=== PATIENT | male | born 1980 | race Caucasian/White ===

== ENCOUNTER 2023-06-09 17:20 | Inpatient (IN) | payer MEDICAID, SELFPAY ==
[2023-06-09 17:22] VITALS: BP 121/90; PULSE 105; RESP 16; TEMP 36.6; O2SAT 95
[2023-06-09 17:45] VITALS: BMI 37.0
--- NOTE | 2023-06-09 17:54 | EKG12_ITS ---
Test Reason : CP Blood Pressure : / mmHG Vent. Rate : 092 BPM Atrial Rate : 092 BPM P-R Int : 132 ms QRS Dur : 088 ms QT Int : 338 ms P-R-T Axes : 058 064 032 degrees QTc Int : 417 ms Normal sinus rhythm with sinus arrhythmia Normal ECG Confirmed by SONAL MARTÍNEZ, TODD ([id number]), manager editorial CHRISTINE AMIN ([id number]) on 06/16/2023 8:17:02 AM Referred By: FREYA Confirmed By:TODD PRUITT MD
--- NOTE | 2023-06-09 17:56 | EDS_ITS ---
HPI <LORNA Anderson - Last Filed: 06/09/23 19:49> History of Present Illness Chief Complaint: Chest Pain Narrative Narrative: Patient is a 42-year-old male with history of pericarditis March 2022 who presents to the emergency department for left-sided chest pain. Patient stated started all of a sudden while he was just sitting there today. Patient states that since this pericarditis which they state was from the COVID-19 virus, he does have some history of panic attacks. Patient states whenever he does feel something in his chest he gets nervous and makes the pain worse. He states that he now has a 6-year-old that is spending time with him and he would like to be checked out. He states it does not feel like his pericarditis. He denies any shortness of breath. He is actually asymptomatic once coming to a room. He is here for evaluation [facility] <LORNA Anderson - Last Filed: 06/09/23 19:49> [facility] Medical History Pericarditis Home Medications carvedilol 3.125 mg tablet 3.125 mg PO Q12H 06/09/23 [History Last Taken Unknown] pantoprazole 40 mg tablet,delayed release 40 mg PO Q12H 06/09/23 [History Last Taken Unknown] Allergy/AdvReac Type Severity Reaction Status Date / Time No Known Allergies Allergy Verified 06/09/23 17:21 Surgical History (Updated 06/09/23 @ 21:00 by Sanjay Anaya) History of cholecystectomy Social History Smoking Status: Never smoker ROS <LORNA Anderson - Last Filed: 06/09/23 19:49> ROS ED ROS Narrative Constitutional: Negative for fever, chills, weight loss, weakness Eyes: Negative for vision loss, vision change, double vision ENT: Negative for any sore throat, ear pain, congestion Cardiovascular: Negative for any palpitations. Positive left-sided chest pain, chest tightness Respiratory: Negative for any cough, sputum production, hemoptysis, dyspnea, dyspnea on exertion, orthopnea Gastrointestinal: Negative for any abdominal pain, nausea, vomiting, diarrhea, constipation, blood in stool, blood in vomit : Negative for any urinary frequency, dysuria, retention, blood in urine Muscle skeletal: Negative for any myalgias, arthralgias, neck pain, back pain Neurological: Negative for any headache, syncope, paresthesias, dizziness Skin: Negative for any rashes, lumps, itching, abrasions, lacerations Psychiatric: Negative for any depression, anxiety, stress, suicidal ideation, homicidal ideation Hematologic: Negative for any easy bruising, excessive bruising, easy bleeding Allergies: Negative for any eczema, hives, rash EXAM <LORNA Anderson - Last Filed: 06/09/23 19:49> Physical Exam Narrative Exam Narrative: Vital signs reviewed. HEET: Head normocephalic atraumatic, TMs clear bilaterally. Posterior pharynx is clear, moist mucous membranes. Nares clear bilaterally. Neck: Supple with no lymphadenopathy or tenderness. No signs of meningismus. Cardiac: Regular rate and rhythm no murmurs gallops or rubs, equal peripheral pulses bilaterally. Respiratory: Lungs clear to auscultation bilaterally. No chest tenderness. Abdomen: Soft, nontender, nondistended. No abdominal bruit or pulsatile masses. No hepatosplenomegaly Extremities: No peripheral edema, no signs of gross trauma or deformity. Active full range of motion of all extremities. Neuro: Cranial nerves II through XII intact, no focal neurological deficits. Skin: Clean dry and intact with no rash, purpura, petechiae, vesicles or pustules. Backs/flank: No CVA tenderness, no midline spinal tenderness, no deformity. Psych: Normal mood and affect. No SI, HI or acute psychosis. Const Vital Signs: 06/09/23 17:22 06/09/23 17:45 06/09/23 18:20 Temperature 97.8 F Temperature Source Temporal Pulse Rate 105 H 75 Respiratory Rate 16 20 H Respiratory Effort Normal Non-Labored Blood Pressure 121/90 H 130/74 H Blood Pressure Mean 100 92 Pulse Ox 95 94 Oxygen Delivery Method Room Air Room Air 06/09/23 19:00 06/09/23 20:03 06/09/23 20:00 Temperature Temperature Source Pulse Rate 78 83 81 Respiratory Rate 16 17 Respiratory Effort Blood Pressure 131/87 H Blood Pressure Mean 101 Pulse Ox 95 93 Oxygen Delivery Method Room Air Positive well nourished and well developed General Appearance ED: well developed <Marciano Hernandez MD - Last Filed: 06/09/23 23:01> Physical Exam Const Vital Signs: 06/09/23 17:22 06/09/23 17:45 06/09/23 18:20 Temperature 97.8 F Temperature Source Temporal Pulse Rate 105 H 75 Respiratory Rate 16 20 H Respiratory Effort Normal Non-Labored Blood Pressure 121/90 H 130/74 H Blood Pressure Mean 100 92 Pulse Ox 95 94 Oxygen Delivery Method Room Air Room Air 06/09/23 19:00 06/09/23 20:03 06/09/23 20:00 Temperature Temperature Source Pulse Rate 78 83 81 Respiratory Rate 16 17 Respiratory Effort Blood Pressure 131/87 H Blood Pressure Mean 101 Pulse Ox 95 93 Oxygen Delivery Method Room Air MDM <LORNA Anderson - Last Filed: 06/09/23 19:49> MDM Lab Data Labs: Laboratory Results - last 24 hr 06/09/23 06/09/23 17:35 19:45 WBC 6.6 RBC 5.57 Hgb 16.8 H Hct 48.2 MCV 86.5 MCH 30.2 MCHC 34.9 RDW Std Deviation 38.9 RDW Coeff of Adam 12.2 Plt Count 401 MPV 10.3 Immature Gran % (Auto) 0.600 Neut % (Auto) 64.3 Lymph % (Auto) 25.4 [place] % (Auto) 6.5 Eos % (Auto) 1.4 Baso % (Auto) 1.8 H Absolute Neuts (auto) 4.3 Absolute Lymphs (auto) 1.68 Nucleated RBC % 0 ESR 17 PT Cancelled INR Cancelled APTT Cancelled Sodium 138 Potassium 3.7 Chloride 107 Carbon Dioxide 27.0 Anion Gap 4 L BUN 9 Creatinine 1.10 Estim Creat Clear Calc 100.67 Est GFR (MDRD) Af Amer 94 Est GFR (MDRD) Non-Af 77 BUN/Creatinine Ratio 8.2 L Glucose 152 H Calcium 9.7 Troponin I High Sens 316 H* Cancelled Radiography Diagnostic Testing: Clinical Impression(s) from Imaging Studies Chest X-Ray 06/09/23 18:05 IMPRESSION: No acute radiographic abnormalities. Electronically Signed: Quirino Jones MD at 19:42 EST , EKG EKG shows normal sinus rhythm with sinus arrhythmia: Attestation: I personally reviewed and interpreted this EKG as follows: Interpretation: Sinus Rhythm Comments: Sinus rhythm with sinus arrhythmia, rate 92 bpm, NE 132 ms, QRS duration 88 ms, no acute ST elevation, no acute infarct noted. Treatment and Re-Evaluation :: Patient appears generally well, patient appears nontoxic, vital signs are stable. Present to the emergency department with complaints of left-sided chest pain, differential diagnose includes repeat pericarditis, anxiety, chest wall p ain. EKG was unremarkable, patient will receive a full cardiac workup. Patient is asymptomatic on my examination. Patient laboratory values show a normal white blood cell CBC, patient's chemistries show a glucose of 102 with an elevated troponin of 316. Secondary to this finding, history of chest pain, patient was given aspirin as well as heparin IV drip and bolus. Patient will need to be admitted to hospital for NSTEMI. Patient was made aware. Patient remained stable. Chest x-ray was unremarkable any acute process. This was interpreted by the ER physician. Spoke with hospitalist, they are agreement and will admit the patient. <Marciano Hernandez MD - Last Filed: 06/09/23 23:01> [facility] MDM Narrative Medical decision making narrative: Dr. Hernandez: I have personally performed a face to face assessment of the patient and have reviewed the GIA Note. I performed a substantive portion of the visit including all aspects of the following. My yates findings include: History is chest pain, history of pericarditis approximately 1 year ago. According to patient, this felt different . Exam is afebrile. Vital signs noted. Regular rate and rhythm. Lungs clear to auscultation bilaterally. Abdomen soft and nontender with normal active bowel sounds. Neurological examination nonfocal and nonlateralizing. Medical Decision Making: Concern is for ACS versus pericarditis, and I have low suspicion for pulmonary embolism. Check EKG. EKG interpreted by myself indepen dently shows no STEMI. Chest x-ray 1 view interpreted by myself shows no acute process. Check labs. Elevated troponin without evidence of acute kidney injury. Concern is for non-STEMI. Patient was given aspirin and started on a heparin drip with bolus. Patient discussed with hospitalist for admission to the PCU. Patient is in stable condition. Other additions or changes: [None] History & Record Review Discussion w/independent historian: Patient Additional record(s) reviewed:: No prior records Lab Data Attestation: I reviewed the patient's lab results. Labs: Laboratory Results - last 24 hr 06/09/23 06/09/23 17:35 19:45 WBC 6.6 RBC 5.57 Hgb 16.8 H Hct 48.2 MCV 86.5 MCH 30.2 MCHC 34.9 RDW Std Deviation 38.9 RDW Coeff of Adam 12.2 Plt Count 401 MPV 10.3 Immature Gran % (Auto) 0.600 Neut % (Auto) 64.3 Lymph % (Auto) 25.4 [place] % (Auto) 6.5 Eos % (Auto) 1.4 Baso % (Auto) 1.8 H Absolute Neuts (auto) 4.3 Absolute Lymphs (auto) 1.68 Nucleated RBC % 0 ESR 17 PT Cancelled INR Cancelled APTT Cancelled Sodium 138 Potassium 3.7 Chloride 107 Carbon Dioxide 27.0 Anion Gap 4 L BUN 9 Creatinine 1.10 Estim Creat Clear Calc 100.67 Est GFR (MDRD) Af Amer 94 Est GFR (MDRD) Non-Af 77 BUN/Creatinine Ratio 8.2 L Glucose 152 H Calcium 9.7 Troponin I High Sens 316 H* Cancelled Radiography Diagnostic Testing: Clinical Impression(s) from Imaging Studies Chest X-Ray 06/09/23 18:05 IMPRESSION: No acute radiographic abnormalities. Electronically Signed: Quirino Jones MD at 19:42 EST , Management Discussion w/another healthcare provider: Hospitalist Discharge Plan Dx/Rx/DC Orders Clinical Impression: Non-ST elevation (NSTEMI) myocardial infarction, Chest pain Disposition Disposition: Acute Care Hospital [facility] Discharge Date/Time: 06/09/23 20:38
[2023-06-09] MEDS: 0.9% Normal Saline (1000mL) 1,000 ML 1000 ML IV (17:57)
--- NOTE | 2023-06-09 17:59 | NURSING ---
NO OLD EKGS
--- NOTE | 2023-06-09 18:05 | RAD_ITS ---
INDICATION: chest pain EXAMINATION/TECHNIQUE: X-RAY - XR Chest 2 Views COMPARISON: None. FINDINGS: The lungs are clear. The cardiomediastinal silhouette is unremarkable. No pleural effusion or pneumothorax. No acute osseous abnormalities. RAD/Chest PA and Lateral IMPRESSION: No acute radiographic abnormalities. Electronically Signed: Quirino Jones MD at 19:42 EST ,
[2023-06-09 18:20] VITALS: BP 130/74; PULSE 75; RESP 20; O2SAT 94
[2023-06-09 18:50] LABS: Troponin-I HS (w/2H Reflex) 316 pg/mL (3.0-78.0)
[2023-06-09 18:51] LABS: Anion Gap 4 (5-15); BUN 9 mg/dL (7-18); BUN/Creat Ratio 8.2 RATIO (10-20); Calcium,Total 9.7 mg/dL (8.5-10.1); Chloride 107 mmol/L (98-107); EST Glomerular Filtration Rate 77 mL/min (>60); Est Glom Filt Rate - Afr Amer 94 mL/min (>60); Estimated Creatinine Clearance 100.67 ml/min; Glucose 152 mg/dL (74-106); Potassium 3.7 mmol/L (3.5-5.1); Sodium Level 138 mmol/L (136-145)
[2023-06-09 18:52] LABS: Absolute Lymphocyte Count 1.68 X10^3/uL (0.83-4.51); Absolute Neutrophil Count 4.3 X10^3/uL (2.0-7.7); Basophil# 0.12 X10^3/uL; Basophil% 1.8 % (0-1); Eosinophil# 0.09 X10^3/uL; Eosinophils% 1.4 % (0-5); Hematocrit 48.2 % (40-54); Hemoglobin 16.8 g/dL (13.0-16.5); Lymphocyte # 1.68 X10^3/ul (0.83-4.51); Lymphocyte % 25.4 % (19-41); Mean Corp Hgb Conc 34.9 g/dL (32-36); Mean Corpuscular Hgb 30.2 pg (27.0-32.0); Mean Corpuscular Volume 86.5 fL (80-94); Mean Platelet Vol. 10.3 fl (6.2-12.0); Monocyte# 0.43 X10^3/uL; Monocyte% 6.5 % (0-10); NRBC Flagged by Analyzer 0 % (0-5); Neutrophil # 4.26 X10^3/uL (2.7-7.7); Neutrophil % 64.3 % (47-70); Platelet Count 401 K/mm3 (150-450); RBC Distribution Width CV 12.2 % (11.6-14.6); RBC Distribution Width SD 38.9 fl (35.1-43.9); Red Blood Count 5.57 M/mm3 (4.6-6.2); White Blood Count 6.6 K/mm3 (4.4-11.0)
[2023-06-09 19:00] VITALS: PULSE 78; RESP 16; O2SAT 95
[2023-06-09 19:14] LABS: Erythrocyte Sedimentation Rate 17 mm/hr (0-20)
[2023-06-09] MEDS: Heparin Injection (Vial) 5,000 UNIT/ML VIAL 4000 UNIT IV (19:56)
[2023-06-09] MEDS: Aspirin 81 MG TAB.CHEW 324 MG PO (19:56)
[2023-06-09] MEDS: HEPARIN/D5w 25,000 UNITS 25,000 UNITS/250 ML IV.SOLN. 0.100000000000000006 UNITS CONT INF (19:58)
[2023-06-09 20:00] VITALS: PULSE 81
[2023-06-09 20:03] VITALS: BP 131/87; PULSE 83; RESP 17; O2SAT 93
--- NOTE | 2023-06-09 20:08 | HP.PCM.HOS_ITS ---
HPI - General General Date of Admission: 06/09/23 Date of Service: 06/09/23 Chief Complaint: Chest pain HPI Narrative JONI CARRILLO, is a 42 M who presents to the ED with concerns of retrosternal chest pain since today. The pain started while he was jogging today and subsided spontaneously after about 3 hours of rest. Last year he developed acute pericarditis that was attributed to COVID and responded to symptomatic therapy. Coronary angiogram at the time was normal. The chest pain was associated with no diaphoresis, syncope, palpitations. No history of falls in the past. Intermittent marijuana use, no smoking, occasional alcohol use. No other drug use. No family history of coronary artery disease. His hemoglobin is 16.8, WBC 6.6, platelet 401, normal creatinine, potassium 3.7, but his troponin high was 316. There are no findings of pericardial effusion on chest x-ray, chest x-ray is essentially normal. [facility] Medical History Pericarditis Home Medications carvedilol 3.125 mg tablet 3.125 mg PO Q12H 06/09/23 [History Last Taken Unknown] pantoprazole 40 mg tablet,delayed release 40 mg PO Q12H 06/09/23 [History Last Taken Unknown] Allergy/AdvReac Type Severity Reaction Status Date / Time No Known Allergies Allergy Verified 06/09/23 17:21 Surgical History (Updated 06/09/23 @ 21:00 by Sanjay Anaya) History of cholecystectomy Social History Smoking Status: Never smoker ROS Constitutional Constitutional: Denies anorexia, change in weight, chills, fatigue, fever(s), malaise, night sweats, weakness or other Eyes Eyes: Denies blurry vision, change in eye color, change in vision, discharge from eye(s), double vision, erythema, eye pain, loss of vision or other ENT HEENT: Denies abnormal hearing, dysphagia, ear pain, epistaxis, headache(s), hearing loss, nasal congestion, nasal discharge, post nasal drip, sinus pressure, sore throat or other Cardiovascular Cardiovascular: Reports chest pain; Denies claudication, dyspnea on exertion, edema, lightheadedness, orthopnea, palpitations, paroxysmal nocturnal dyspnea, rapid heart rate, syncope or other Respiratory/Chest Respiratory/Chest: Denies cough, dyspnea, excessive phlegm production, hemoptysis, productive cough, shortness of breath at rest, shortness of breath with exertion, wheezing or other Gastrointestinal Gastrointestinal: Denies abdominal pain, coffee ground emesis, constipation, diarrhea, dyspepsia, hematemesis, hematochezia, loose stools, melena, nausea, vomiting or other Genitourinary Genitourinary: Denies burning urination, difficulty urinating, dysuria, hematuria, nocturia, urinary frequency, urinary hesitancy, urinary incontinence, urinary urgency or other Vital Signs Vital Signs Vital Signs: 06/09/23 17:22 06/09/23 17:45 06/09/23 18:20 Temperature 97.8 F Temperature Source Temporal Pulse Rate 105 H 75 Respiratory Rate 16 20 H Respiratory Effort Normal Non-Labored Blood Pressure 121/90 H 130/74 H Blood Pressure Mean 100 92 Pulse Ox 95 94 Oxygen Delivery Method Room Air Room Air 06/09/23 19:00 06/09/23 20:03 06/09/23 20:00 Temperature Temperature Source Pulse Rate 78 83 81 Respiratory Rate 16 17 Respiratory Effort Blood Pressure 131/87 H Blood Pressure Mean 101 Pulse Ox 95 93 Oxygen Delivery Method Room Air Weight Weight: 288 lb 12.889 oz Body Mass Index (BMI) 37.0 Physical Exam Const alert, oriented x3 and no apparent distress HEENT normocephalic Eyes PERRL Neck no lymphadenopathy Resp normal respiratory effort Cardio regular rate, regular rhythm, S1 normal heart sound, S2 normal heart sound and no JVD GI normal to inspection, nondistended, normoactive bowel sounds Neuro oriented x3 Results Medical Records Data Attestation: I reviewed the patient's medical records Lab / Micro Data Attestation: I reviewed the patient's lab results. 06/09/23 17:35 06/09/23 17:35 Labs: Laboratory Results - last 24 hr 06/09/23 17:35: WBC 6.6, RBC 5.57, Hgb 16.8 H, Hct 48.2, MCV 86.5, MCH 30.2, MCHC 34.9, RDW Std Deviation 38.9, RDW Coeff of Adam 12.2, Plt Count 401, MPV 10.3, Immature Gran % (Auto) 0.600, Neut % (Auto) 64.3, Lymph % (Auto) 25.4, [place] % (Auto) 6.5, Eos % (Auto) 1.4, Baso % (Auto) 1.8 H, Absolute Neuts (auto) 4.3, Absolute Lymphs (auto) 1.68, Nucleated RBC % 0, ESR 17, Sodium 138, Potassium 3.7, Chloride 107, Carbon Dioxide 27.0, Anion Gap 4 L, BUN 9, Creatinine 1.10, Estim Creat Clear Calc 100.67, Est GFR (MDRD) Af Amer 94, Est GFR (MDRD) Non-Af 77, BUN/Creatinine Ratio 8.2 L, Glucose 152 H, Calcium 9.7, Troponin I High Sens 316 H* 06/09/23 19:45: PT Cancelled, INR Cancelled, APTT Cancelled Imagaing Radiology Impression Chest X-Ray 06/09/23 18:05 IMPRESSION: No acute radiographic abnormalities. Electronically Signed: Quirino Jones MD at 19:42 EST , Assessment & Plan Assessment/Plan (1) Chest pain: PLAN: Plan Mr Carrillo, 42-year-old gentleman presents to the ED with acute onset retrosternal chest pain while running today. He has a prior history of pericarditis and was concerned that this could be pain of cardiac origin. Based on his elevated troponin iron levels and pain with exertion, this could be NSTEMI. We will repeat his troponin I levels and plan for cardiology consult tomorrow morning. 1. Acute chest pain: Differentials: NSTEMI vs Myocarditis -Repeat high-sensitivity troponin that is trending upwards. -Monitor inpatient with telemetry -Urgent cardiology consult--> Plan for coronary angiogram today -Started on heparin gtt for NSTEMI -We have troponin levels are negative we will plan for outpatient stress test - Tab atorvastatin 80 mg provided 2. Prior history of acute pericarditis: No features of pericardial effusion, no shortness of breath. echocardiogram today 3. Obesity: Plan for outpatient follow-up for weight management 4. GERD: Asymptomatic at this time, continue home pantoprazole Sepsis Attestation Sepsis Attestation: Sepsis Ruled Out Charges/Coding Visit Charges Inpatient E&M: 15131 Init Hosp L3
[2023-06-09 20:22] LABS: Reflex Troponin-HS? (from REC) Y
[2023-06-09 20:45] VITALS: BMI 35.8
[2023-06-09 21:50] LABS: Troponin-I HS 2407 pg/mL (3.0-78.0)
--- NOTE | 2023-06-09 21:59 | ECHOCS_ITS ---
Reason For Study: Chest Pain Procedure This was a 2D Doppler, Color Flow transthoracic echocardiogram. Contrast injection was performed. Exam performed portable in patient room. Left Ventricle Normal LV size. Mild eccentric left ventricular hypertrophy. The estimated ejection fraction is 60 %. A mass measuring 1.4 x 0.9 cm is in the apex. This mass could be a thrombus or more likely a tumor, especially that LV apex is sylvia also after Definity contrast was injected, the contrast was absorbed into the mass. Cardiac MRI is recommended for further evaluation of this cardiac mass. No regional wall motion abnormalities noted. There was hyperechoic basal anteroseptum noted. This could be an embryonic fat however cardiac MRI is recommended for further evaluation. Right Ventricle Normal RV size. Normal systolic function. Atria The left and right atria are normal. Mitral Valve The mitral valve is structurally normal. No prolapse or stenosis seen. Trivial mitral valve insufficiency. Tricuspid Valve Normal tricuspid valve. Trivial tricuspid valve insufficiency. Right ventricular systolic pressure estimated to be 22 mmHg. Aortic Valve Trisinus/trileaflet aortic valve. There is no aortic stenosis. No aortic valve insufficiency. Pulmonic Valve Normal pulmonic valve. Mild (1+) pulmonic valve insufficiency. Great Vessels Normal aortic root. Pericardium/Pleural No pericardial effusion. Medication Diluted definity 3ml given slow IV push to enhance endocardial definition. MMode/2D Measurements & Calculations LVIDd: 5.1 cm IVSd: 1.2 cm Ao root diam: 2.9 cm LVIDs: 3.6 cm LVPWd: 1.0 cm FS: 29.4 % LAV(MOD-bp): 21.6 ml LVAd ap4: 26.0 cm2 SV(MOD-sp4): 44.4 ml LAV(MOD-bp) Indexed: 8.7 ml/m2 LVLd ap4: 8.6 cm LAV(MOD-sp2): 16.2 ml EDV(MOD-sp4): 66.2 ml LAV(MOD-sp4): 27.2 ml EDV(sp4-el): 66.5 ml LVAs ap4: 13.1 cm2 LVLs ap4: 6.9 cm ESV(MOD-sp4): 21.8 ml ESV(sp4-el): 21.3 ml EF(MOD-sp4): 67.1 % EF(sp4-el): 67.9 % SV(sp4-el): 45.1 ml LA A4 area: 13.1 cm2 LA dimension(2D): 4.2 cm RA A4 area: 9.9 cm2 Time Measurements MV dec time: 0.27 sec Doppler Measurements & Calculations MV E max lamin: 59.1 cm/sec Lat Peak E' Lamin: 12.1 cm/sec Med Peak E' Lamin: 6.9 cm/sec MV A max lamin: 46.4 cm/sec E/E' lat: 4.9 E/E' med: 8.5 MV E/A: 1.3 MV dec slope: 220.7 cm/sec2 Ao V2 max: 115.1 cm/sec LV V1 max: 112.9 cm/sec Ao max P.3 mmHg LV V1 max P.1 mmHg Ao V2 mean: 87.2 cm/sec Ao mean P.2 mmHg Ao V2 VTI: 21.6 cm PA V2 max: 116.9 cm/sec TR max lamin: 216.7 cm/sec TR max P.8 mmHg ECHO/Echo Complete W/ Contrast Interpretation Summary The estimated ejection fraction is 60 %. Mild eccentric left ventricular hypertrophy. Structually normal valves. No wall motion abnormalities noted. A mass measuring 1.4 x 0.9 cm is in the apex. This mass could be a thrombus or more likely a tumor, especially that LV apex is sylvia also after Definity contrast was injecte d, the contrast was absorbed into the mass. Cardiac MRI is recommended for further evaluation of th is cardiac mass. There was hyperechoic basal anteroseptum noted. This could be an embryonic fat however cardiac MRI is recommended for further evaluation to rule out tumor. Ordering Physician: Annalisa Razo Performed By: Malina Valentino, ESTRELLA, RVT
[2023-06-09] MEDS: Pantoprazole Sodium 40 MG Tablet PO (22:04)
[2023-06-09 22:08] LABS: International Normalized Ratio 1.1; Prothrombin Time (Protime)PT. 14.6 SECONDS (11.7-14.9)
[2023-06-09 22:17] LABS: Partial Thromboplast Time 100.9 Seconds (24.1-36.2)
[2023-06-09] MEDS: MELATONIN 3 MG TABLET PO (22:34)
[2023-06-09] MEDS: Atorvastatin Calcium 80 MG Tablet PO (22:34)
--- NOTE | 2023-06-09 23:00 | NURSING ---
pt arrived from ED with heparin gtt running at 10ml/hr (1000u), on Aug it said it was running at 0.1ml/hr, fixed in aug to show correct rate, pharmacy aware.
[2023-06-09 23:16] VITALS: O2SAT 95
[2023-06-10] VITALS (11 sets, daily range): BP systolic 112–139; BP diastolic 65–90; PULSE 62–77; RESP 16–18; TEMP 35.8–36.7; O2SAT 95–99
[2023-06-10 01:01] LABS: Troponin-I HS 4026 pg/mL (3.0-78.0)
--- NOTE | 2023-06-10 05:55 | EKG12_ITS ---
Test Reason : NSTEMI Blood Pressure : / mmHG Vent. Rate : 070 BPM Atrial Rate : 070 BPM P-R Int : 150 ms QRS Dur : 094 ms QT Int : 380 ms P-R-T Axes : 045 058 028 degrees QTc Int : 410 ms Normal sinus rhythm Normal ECG When compared with ECG of 09-JUN-2023 17:25, MANUAL COMPARISON REQUIRED, DATA IS UNCONFIRMED Confirmed by SONAL MARTÍNEZ, TODD ([id number]), web content editor CHET HARO ([id number]) on 06/16/2023 10:12:52 AM Referred By: Confirmed By:TODD PRUITT MD
[2023-06-10 06:14] LABS: Absolute Neutrophil Count 2.6 X10^3/uL (2.0-7.7); Basophil# 0.08 X10^3/uL; Basophil% 1.6 % (0-1); Eosinophil# 0.09 X10^3/uL; Eosinophils% 1.8 % (0-5); Hematocrit 46.6 % (40-54); Hemoglobin 15.6 g/dL (13.0-16.5); Lymphocyte % 35.7 % (19-41); Mean Corp Hgb Conc 33.5 g/dL (32-36); Mean Corpuscular Hgb 29.9 pg (27.0-32.0); Mean Corpuscular Volume 89.4 fL (80-94); Monocyte# 0.44 X10^3/uL; Monocyte% 8.7 % (0-10); NRBC Flagged by Analyzer 0 % (0-5); Neutrophil # 2.59 X10^3/uL (2.7-7.7); Neutrophil % 51.4 % (47-70); Platelet Count 314 K/mm3 (150-450); RBC Distribution Width CV 12.4 % (11.6-14.6); RBC Distribution Width SD 40.9 fl (35.1-43.9); Red Blood Count 5.21 M/mm3 (4.6-6.2)
[2023-06-10] MEDS: Carvedilol 3.125 MG TABLET PO ×2 (06:23→16:35)
[2023-06-10 06:26] LABS: Partial Thromboplast Time 31.1 Seconds (24.1-36.2)
[2023-06-10 06:41] LABS: International Normalized Ratio 1.1; Prothrombin Time (Protime)PT. 13.7 SECONDS (11.7-14.9)
[2023-06-10] MEDS: Heparin Injection (Vial) 5,000 UNIT/ML VIAL IV ×2 (06:44→13:35)
[2023-06-10 06:49] LABS: ALB/GLOB Ratio 1.1 RATIO (0.9-2.4); AST(SGOT) 36 U/L (15-37); Alanine Aminotransfer ALT/SGPT 31 U/L (16-61); Albumin, Serum 3.6 g/dL (3.2-5.0); Alkaline Phosphatase 65 U/L (45-117); Anion Gap 6 (5-15); BUN 8 mg/dL (7-18); Calcium,Total 8.8 mg/dL (8.5-10.1); Chloride 111 mmol/L (98-107); EST Glomerular Filtration Rate 87 mL/min (>60); Est Glom Filt Rate - Afr Amer 105 mL/min (>60); Estimated Creatinine Clearance 110.74 ml/min; Globulin 3.4 g/dL (2.2-4.2); Glucose 121 mg/dL (74-106); Magnesium 2.1 mg/dL (1.6-2.6); Potassium 4.1 mmol/L (3.5-5.1); Sodium Level 141 mmol/L (136-145); Thyroid Stim Hormone (TSH) 2.83 uIU/mL (0.358-3.74)
--- NOTE | 2023-06-10 09:36 | PN.HOSP_ITS ---
Subjective Subjective Doing well, no issues overnight. Denies any active chest pain has a history of pericarditis from COVID about a year and a half ago and at that time had a clean normal heart cath Objective Data Objective Data Vital Signs: Vital Signs Temp Pulse Resp BP Pulse Ox O2 Del Method 98.0 F 77 16 139/89 H 97 Room Air 06/10/23 06:20 06/10/23 06:20 06/10/23 06:20 06/10/23 06:20 06/10/23 06:20 06/10/23 07:28 Oxygen Delivery Method Room Air Weight: 278 lb 14.156 oz Body Mass Index (BMI) 35.8 Intake & Output: Intake and Output for Last 24 Hours 06/09/23 06/10/23 06/11/23 03:59 03:59 03:59 Intake Total 1020.23 / 1020.23 46.55 / 46.55 Balance 1020.23 / 1020.23 46.55 / 46.55 Lab / Micro Data 06/10/23 06:03 06/10/23 06:03 Labs: Laboratory Results - last 24 hr 06/09/23 17:35: WBC 6.6, RBC 5.57, Hgb 16.8 H, Hct 48.2, MCV 86.5, MCH 30.2, MCHC 34.9, RDW Std Deviation 38.9, RDW Coeff of Adam 12.2, Plt Count 401, MPV 10.3, Immature Gran % (Auto) 0.600, Neut % (Auto) 64.3, Lymph % (Auto) 25.4, [place] % (Auto) 6.5, Eos % (Auto) 1.4, Baso % (Auto) 1.8 H, Absolute Neuts (auto) 4.3, Absolute Lymphs (auto) 1.68, Nucleated RBC % 0, ESR 17, Sodium 138, Potassium 3.7, Chloride 107, Carbon Dioxide 27.0, Anion Gap 4 L, BUN 9, Creatinine 1.10, Estim Creat Clear Calc 100.67, Est GFR (MDRD) Af Amer 94, Est GFR (MDRD) Non-Af 77, BUN/Creatinine Ratio 8.2 L, Glucose 152 H, Calcium 9.7, Troponin I High Sens 316 H* 06/09/23 19:45: PT Cancelled, INR Cancelled, APTT Cancelled, Troponin I High Sens Cancelled 06/09/23 20:57: PT 14.6, INR 1.1, APTT 100.9 H*, Troponin I High Sens 2407 H* 06/09/23 23:59: Troponin I High Sens 4026 H* 06/10/23 06:03: WBC 5.0, RBC 5.21, Hgb 15.6, Hct 46.6, MCV 89.4, MCH 29.9, MCHC 33.5, RDW Std Deviation 40.9, RDW Coeff of Adam 12.4, Plt Count 314, MPV 10.0, Immature Gran % (Auto) 0.800, Neut % (Auto) 51.4, Lymph % (Auto) 35.7, [place] % (A uto) 8.7, Eos % (Auto) 1.8, Baso % (Auto) 1.6 H, Absolute Neuts (auto) 2.6, A bsolute Lymphs (auto) 1.80, Nucleated RBC % 0, PT 13.7, INR 1.1, APTT 31.1, Sodium 141, Potassium 4.1, Chloride 111 H, Carbon Dioxide 24.0, Anion Gap 6, BUN 8, Creatinine 1.00, Estim Creat Clear Calc 110.74, Est GFR (MDRD) Af Amer 105, Est GFR (MDRD) Non-Af 87, BUN/Creatinine Ratio 8.0 L, Glucose 121 H, Calcium 8.8, Magnesium 2.1, Total Bilirubin 1.00, AST 36, ALT 31, Alkaline Phosphatase 65, Total Protein 7.0, Albumin 3.6, Globulin 3.4, Albumin/Globulin Ratio 1.1, TSH 2.83 Radiography Diagnostic Testing: Radiology Impression Chest X-Ray 06/09/23 18:05 IMPRESSION: No acute radiographic abnormalities. Electronically Signed: Quirino Jones MD at 19:42 EST , Physical Exam Narrative General: Alert, Oriented x3, Cooperative, No apparent distress HEENT: Atraumatic, PERRLA, EOMI, Normocephalic Oral: Moist Mucosa Neck: Supple, No JVD Lungs: Clear to auscultation, Normal air movement, No rhonchi, No wheeze, No rales Cardiovascular: Regular rate, Regular Rhythm, Normal S1, Normal S2, No murmurs Abdomen: Soft, Non Tender, Non-Distended, No Hepato-splenomegaly Extremities: No edema, Capillary Refill Less than 3 Seconds Skin: No rashes, No breakdown Musculoskeletal: No Tenderness to Palpation of Joints or Extremities Neurological: Cranial nerves II-XII grossly intact, Motor Exam 5/5 strength throughout, Sensory exam intact to light touch and pain Psych/Mental Status: Normal Affect, Appropriate Assessment & Plan Assessment/Plan (1) Chest pain: PLAN: Plan 1. Chest pain/HTN ? Troponins are elevated, continue with the heparin drip ? Consult cardiology for cath ? Plan for echo today ? Continue with Lipitor and Coreg 2. GERD ? Stable ? Continue with PPI DVT: Heparin drip Charges/Coding Visit Charges Inpatient E&M: 50211 Subs Hosp L2
--- NOTE | 2023-06-10 10:38 | CASEMGMT ---
Insurance review for hospitals In-network with [facility] [facility] insurance if transfer is recommended is as follows:. [facility], [place], [facility], [facility], [facility], [facility], [place], [place], [facility], [facility]), and . Fang Foss, Discharge Planning Asst.
[2023-06-10 12:46] LABS: Partial Thromboplast Time 34.7 Seconds (24.1-36.2)
--- NOTE | 2023-06-10 15:48 | CASEMGMT ---
RN CM note: RN CM to room to complete initial RN CM assessment. Pt out of room at this time. RN CM to complete assessment at a later time. Krystle BSN RN CM
[2023-06-10] MEDS: Pantoprazole Sodium 40 MG Tablet PO (16:35)
[2023-06-10] MEDS: 0.9% Saline Lock 10 ML Syringe IV (16:36)
--- NOTE | 2023-06-10 16:39 | DCINST_ITS ---
Discharge Instructions Diet Discharge Diet: Low fat / Low cholesterol Activity Discharge Activity: Return to Normal Activity Dressing / Incision Call your doctor if you observe: Shortness of breath, Dizziness, Fainting spells, Swelling in the ankles, Chest pain and Increased palpitations (irregular heartbeat) Follow Up Care Test Results: Test results from this visit will be discussed in further detail at your follow- up appointment, if applicable. Discharge Plan Admission Admit Date/Time: 06/09/23 20:11 Attending Provider: Heath Westfall Primary Care Provider: CHUNG ESPINOSA Consulting Providers: Annalisa Razo Instructions Additional Instructions / Restrictions: Follow-up with your PCP in 3 to 5 days to schedule an outpatient cardiac MRI to further evaluate findings on the echocardiogram with possible intracardiac nodule Discharge Orders/Prescriptions Prescriptions: Continued carvedilol 3.125 mg tablet 3.125 mg PO Q12H 30 Days Qty: 60 4RF Changed pantoprazole 40 mg tablet,delayed release (DR/EC) 40 mg PO DAILY 30 Days Qty: 30 0RF Referrals / Follow Up: CHUNG ESPINSOA [Other] CHUNG ESPINOSA [Other] Disposition Disposition (needs filled in before D/C Order can be placed): Home, Self Care
--- NOTE | 2023-06-10 16:42 | DS.PCM_ITS ---
Providers Date of Admission: 06/09/23 Primary Care Physician: CHUNG ESPINOSA Consultations 06/09/23 21:59 Consult: Cardiology Stat Consulting Provider: Annalisa Razo Reason for Consult: Chest Pain EMERGENT Consult: Yes MD Notified: Yes Date Notified: 06/09/23 Time Notified: 21:59 Method of Notification: Verbal Reason For Visit: NSTEMI Diagnosis Discharge Diagnosis (1) Chest pain: Status: Acute Code(s): R07.9 - Chest pain, unspecified Medications at Discharge Home Medications carvedilol 3.125 mg tablet 3.125 mg PO Q12H 30 days #60 tabs 06/10/23 pantoprazole 40 mg tablet,delayed release 40 mg PO DAILY 30 days #30 tabs 06/10/23 Hospital Course Operations None Procedures 2-D Echocardiogram and Cardiac catheterization Summary of Care Provided Minutes Spent on Discharge: 36 Hospital Course: Per HPI: JONI ENNIS, is a 42 M who presents to the ED with concerns of retr osternal chest pain since today. The pain started while he was jogging today and subsided spontaneously after about 3 hours of rest. Last year he developed acute pericarditis that was attributed to COVID and responded to symptomatic therapy. Coronary angiogram at the time was normal. The chest pain was associated with no diaphoresis, syncope, palpitations. No history of falls in the past. Intermittent marijuana use, no smoking, occasional alcohol use. No other drug use. No family history of coronary artery disease. His hemoglobin is 16.8, WBC 6.6, platelet 401, normal creatinine, potassium 3.7, but his troponin high was 316. There are no findings of pericardial effusion on chest x-ray, chest x-ray is essentially normal. Hospital course: 1. Chest pain?42-year-old male presented to the hospital with substernal chest pain with an elevated troponin and no ischemic changes on his EKG. Troponin did significantly elevate to 4000 and so he had a heart cath today that was relayed to staff as being normal and that his echocardiogram was also unremarkable in t erms of ejection fraction however there is a possibility of an intracardiac nodule that the vendor analyst recommended a cardiac MRI to be done as an outpatient. I discussed with the patient the possibility for discharge today versus going home tomorrow and he expressed understanding of the risk and benefits of going home today and would like to go home tonight if possible. Will refill his Coreg on discharge and I recommend he follow-up with his PCP in 3 to 5 days to schedule the outpatient cardiac MRI. I discussed with him the need to return to the hospital if he has any further chest pain or shortness of breath. He says that he had a normal cardiac cath about 18 months ago after he had chest pain and was told that it was likely due to pericarditis from COVID. He says that he has had significant anxiety since then and so it is possible that he had a Takotsubo's component on this admission though it appears that his EF was normal. I do recommend outpatient evaluation for his anxiety disorder. Weight / BMI Weight Weight: 278 lb 14.156 oz Body Mass Index (BMI) 35.8 ABG / Lab / Microbiology Data 06/10/23 06:03 06/10/23 06:03 Laboratory: Laboratory Results - last 24 hr 06/09/23 17:35: WBC 6.6, RBC 5.57, Hgb 16.8 H, Hct 48.2, MCV 86.5, MCH 30.2, MCHC 34.9, RDW Std Deviation 38.9, RDW Coeff of Adam 12.2, Plt Count 401, MPV 10.3, Immature Gran % (Auto) 0.600, Neut % (Auto) 64.3, Lymph % (Auto) 25.4, [place] % (Auto) 6.5, Eos % (Auto) 1.4, Baso % (Auto) 1.8 H, Absolute Neuts (auto) 4.3, Absolute Lymphs (auto) 1.68, Nucleated RBC % 0, ESR 17, Sodium 138, Potassium 3.7, Chloride 107, Carbon Dioxide 27.0, Anion Gap 4 L, BUN 9, Creatinine 1.10, Estim Creat Clear Calc 100.67, Est GFR (MDRD) Af Amer 94, Est GFR (MDRD) Non-Af 77, BUN/Creatinine Ratio 8.2 L, Glucose 152 H, Calcium 9.7, Troponin I High Sens 316 H* 06/09/23 19:45: PT Cancelled, INR Cancelled, APTT Cancelled, Troponin I High Sens Cancelled 06/09/23 20:57: PT 14.6, INR 1.1, APTT 100.9 H*, Troponin I High Sens 2407 H* 06/09/23 23:59: Troponin I High Sens 4026 H* 06/10/23 06:03: WBC 5.0, RBC 5.21, Hgb 15.6, Hct 46.6, MCV 89.4, MCH 29.9, MCHC 33.5, RDW Std Deviation 40.9, RDW Coeff of Adam 12.4, Plt Count 314, MPV 10.0, Immature Gran % (Auto) 0.800, Neut % (Auto) 51.4, Lymph % (Auto) 35.7, [place] % (Auto) 8.7, Eos % (Auto) 1.8, Baso % (Auto) 1.6 H, Absolute Neuts (auto) 2.6, Absolute Lymphs (auto) 1.80, Nucleated RBC % 0, PT 13.7, INR 1.1, APTT 31.1, Sodium 141, Potassium 4.1, Chloride 111 H, Carbon Dioxide 24.0, Anion Gap 6, BUN 8, Creatinine 1.00, Estim Creat Clear Calc 110.74, Est GFR (MDRD) Af Amer 105, Est GFR (MDRD) Non-Af 87, BUN/Creatinine Ratio 8.0 L, Glucose 121 H, Calcium 8.8, Magnesium 2.1, Total Bilirubin 1.00, AST 36, ALT 31, Alkaline Phosphatase 65, Total Protein 7.0, Albumin 3.6, Globulin 3.4, Albumin/Globulin Ratio 1.1, TSH 2.83 06/10/23 12:28: APTT 34.7 Radiography Diagnostic Testing: Radiology Impression Chest X-Ray 06/09/23 18:05 IMPRESSION: No acute radiographic abnormalities. Electronically Signed: Quirino Jones MD at 19:42 EST , D/C Instructions Discharge Diet: Low fat / Low cholesterol Call your doctor if you observe: Shortness of breath, Dizziness, Fainting spells, Swelling in the ankles, Chest pain and Increased palpitations (irregular heartbeat) Meaningful Use Info Meaningful Use Diagnoses (Choose all that apply): None applicable Discharge Plan Admission Admit Date/Time: 06/09/23 20:11 Attending Provider: Heath Westfall Primary Care Provider: CHUNG ESPNIOSA Consulting Providers: Annalisa Razo Instructions Additional Instructions / Restrictions: Follow-up with your PCP in 3 to 5 days to schedule an outpatient cardiac MRI to further evaluate findings on the echocardiogram with possible intracardiac nodule Discharge Orders/Prescriptions Prescriptions: Continued carvedilol 3.125 mg tablet 3.125 mg PO Q12H 30 Days Qty: 60 4RF Changed pantoprazole 40 mg tablet,delayed release (DR/EC) 40 mg PO DAILY 30 Days Qty: 30 0RF Referrals / Follow Up: CHUNG ESPINOSA [Other] CHUNG ESPINOSA [Other] Disposition Disposition (needs filled in before D/C Order can be placed): Home, Self Care Charges/Coding Visit Charges Inpatient E&M: 66721 Disch Hosp >30min
--- NOTE | 2023-06-10 17:25 | CASEMGMT ---
RN?CM?MYSTERY SHOPPER?CM?to room to meet with patient for initial transition planning/care coordination?assessment.?RN?CM?introduced self and role at [facility].? Pt voices understanding and consents to?assessment?at this time.? Pt sitting up in chair in room at this time.? Girlfriend, Pennie, in room visiting and pt agreeable to her being present during assessment. Pt is A/O at this time and answers all questions appropriately.?? Care providers, pharmacy, and demographics verified/updated at this time. PCP: Dr Henna Saenz Specialists: none Preferred [facility]acy: [facility] Insurance: [employer] Prescription Benefit:?Yes Living Will/HPOA:? Pt does not currently have LW/HCPOA. Pt made aware that he can contact as an out-pt and make appt in the future if he decides he would like to talk with someone about this or would like to utilize [facility] social work for advanced directive completion.??? LNOK: Mother, Pennie. Pt wishes to add girlfriend, Pennie, as primary contact and his mother as secondary. [place] updated. Living Arrangements: Lives alone in one story home. Independent. Transportation:?Pt states drives self and states no transportation concerns at this time.? DME: ? Denies using any DME and denies needs.? HHC/SNF: No hx of either. No needs identified. Pt wishes to return home and states has no concerns with going home at this time. PLAN:??Home Krystle BSN?RN?CM
--- NOTE | 2023-06-10 17:49 | CON.PCM.CA_ITS ---
Assessment & Plan Assessment/Plan (1) Non-ST elevation (NSTEMI) myocardial infarction: PLAN: Patient underwent left heart catheterization which showed no significant obstructive coronary artery disease noted. Continue treatment of NSTEMI with heparin drip for at least 48 hours. Start patient on aspirin and high intensity statin. Continue home dose beta-franny/Coreg Obtain ESR and CRP. Patient elevated troponin could be related to myocarditis however recommend to obtain CTA chest to rule out other causes of elevated troponin. Patient will need cardiac MRI for further evaluation of the cardiac mass (2) Cardiac mass: PLAN: Patient will need to be transition to oral anticoagulation for now as Eliquis 5 mg twice daily. Continue aspirin in the meantime. Patient will need cardiac MRI for further evaluation of the apical mass and the hyperechoic anterior septum. HPI Consult Data Date of Consult: 06/10/23 HPI Narrative Reason for Consultation: NSTEMI. HPI Narrative: JONI ENNIS, is a 42 M who presents with chest pain. Patient has a history of of pericarditis due to COVID. He presented to the ED with sudden onset left-sided chest pain which resolved upon presentation to the ED. Patient EKG upon presentation showed normal sinus rhythm with no acute ST-T wave changes. Troponins were initially slightly evaded then trended up significantly to 4026. Patient said his chest pain was all of a sudden left-sided sharp in nature which resolved spontaneously. He denied shortness of breath, no PND's, no orthopnea, no fever, no cough. Currently he is resting in bed comfortably with no chest pain or shortness of breath. Echocardiogram showed normal ejection fraction with no much abnormalities, there was apical mass in the LV apex which could be a tumor or a thrombus however it is more likely a tumor as the apex is sylvia and not aneurysmal or hypokinetic also the mass did not take the definitive contrast. There was also a hyperechoic basal anteroseptum noted. [facility] Medical History (Updated 06/10/23 @ 19:[address] Benito Roland MD) Pericarditis Home Medications carvedilol 3.125 mg tablet 3.125 mg PO Q12H 30 days #60 tabs 06/10/23 [Rx Last Taken Unknown] pantoprazole 40 mg tablet,delayed release 40 mg PO DAILY 30 days #30 tabs 06/10/23 [Rx Last Taken Unknown] Allergy/AdvReac Type Severity Reaction Status Date / Time No Known Allergies Allergy Verified 06/09/23 17:21 Surgical History (Updated 06/09/23 @ 21:00 by Sanjay Anaya) History of cholecystectomy Social History Smoking Status: Never smoker ROS ROS Narrative 12 point review of system were obtained, negative other than what mentioned in the HPI. Physical Exam Const alert and oriented x3 Orientation / Consciousness: awake HEENT normocephalic and head/scalp atraumatic Eyes PERRL and EOMs intact bilaterally Chest inspection of chest normal and palpation of chest normal Resp normal respiratory effort and clear to auscultation bilaterally Cardio regular rate, regular rhythm, S1 normal heart sound and S2 normal heart sound Rate: regular rate Rhythm: regular rhythm GI normal to inspection, nondistended, normoactive bowel sounds and soft to palpation Extremity normal to inspection and full ROM Skin no rashes or lesions noted and no wounds Psych mental status grossly normal and thought process normal Risk Stratification Risk Stratification Applicable: No Objective Data Vital Signs: Vital Signs Temp Pulse Resp BP Pulse Ox O2 Del Method 97.8 F 70 18 127/90 H 99 Room Air 06/10/23 16:45 06/10/23 17:35 06/10/23 17:35 06/10/23 17:35 06/10/23 17:35 06/10/23 17:35 Oxygen Delivery Method Room Air Weight: 278 lb 14.156 oz Body Mass Index (BMI) 35.8 Intake & Output: Intake and Output for Last 24 Hours 06/08/23 06/09/23 06/10/23 23:59 23:59 23:59 Intake Total 1020.23 / 1020.23 301.80 / 301.80 Balance 1020.23 / 1020.23 301.80 / 301.80 Lab / Micro Data 06/10/23 06:03 06/10/23 06:03 Labs: Laboratory Results - last 24 hr 06/09/23 17:35: WBC 6.6, RBC 5.57, Hgb 16.8 H, Hct 48.2, MCV 86.5, MCH 30.2, MCHC 34.9, RDW Std Deviation 38.9, RDW Coeff of Adam 12.2, Plt Count 401, MPV 10 .3, Immature Gran % (Auto) 0.600, Neut % (Auto) 64.3, Lymph % (Auto) 25.4, [place] % (Auto) 6.5, Eos % (Auto) 1.4, Baso % (Auto) 1.8 H, Absolute Neuts (auto) 4.3, Absolute Lymphs (auto) 1.68, Nucleated RBC % 0, ESR 17, Sodium 138, Potassium 3.7, Chloride 107, Carbon Dioxide 27.0, Anion Gap 4 L, BUN 9, Creatinine 1.10, Estim Creat Clear Calc 100.67, Est GFR (MDRD) Af Amer 94, Est GFR (MDRD) Non-Af 77, BUN/Creatinine Ratio 8.2 L, Glucose 152 H, Calcium 9.7, Troponin I High Sens 316 H* 06/09/23 19:45: PT Cancelled, INR Cancelled, APTT Cancelled, Troponin I High Sens Cancelled 06/09/23 20:57: PT 14.6, INR 1.1, APTT 100.9 H*, Troponin I High Sens 2407 H* 06/09/23 23:59: Troponin I High Sens 4026 H* 06/10/23 06:03: WBC 5.0, RBC 5.21, Hgb 15.6, Hct 46.6, MCV 89.4, MCH 29.9, MCHC 33.5, RDW Std Deviation 40.9, RDW Coeff of Adam 12.4, Plt Count 314, MPV 10.0, Immature Gran % (Auto) 0.800, Neut % (Auto) 51.4, Lymph % (Auto) 35.7, [place] % (Auto) 8.7, Eos % (Auto) 1.8, Baso % (Auto) 1.6 H, Absolute Neuts (auto) 2.6, Absolute Lymphs (auto) 1.80, Nucleated RBC % 0, PT 13.7, INR 1.1, APTT 31.1, Sodium 141, Potassium 4.1, Chloride 111 H, Carbon Dioxide 24.0, Anion Gap 6, BUN 8, Creatinine 1.00, Estim Creat Clear Calc 110.74, Est GFR (MDRD) Af Amer 105, Est GFR (MDRD) Non-Af 87, BUN/Creatinine Ratio 8.0 L, Glucose 121 H, Calcium 8.8, Magnesium 2.1, Total Bilirubin 1.00, AST 36, ALT 31, Alkaline Phosphatase 65, Total Protein 7.0, Albumin 3.6, Globulin 3.4, Albumin/Globulin Ratio 1.1, TSH 2.83 06/10/23 12:28: APTT 34.7 Cardiology Labs/Tests 06/09/23 17:35: WBC 6.6, RBC 5.57, Hgb 16.8 H, Hct 48.2, MCV 86.5, MCH 30.2, MCHC 34.9, Plt Count 401, MPV 10.3, Immature Gran % (Auto) 0.600, Neut % (Auto) 64.3, Lymph % (Auto) 25.4, [place] % (Auto) 6.5, Eos % (Auto) 1.4, Baso % (Auto) 1.8 H, Absolute Neuts (auto) 4.3, Nucleated RBC % 0, Sodium 138, Potassium 3.7, Chloride 107, Carbon Dioxide 27.0, Anion Gap 4 L, BUN 9, Creatinine 1.10, Est GFR (MDRD) Af Amer 94, Est GFR (MDRD) Non-Af 77, BUN/Creatinine Ratio 8.2 L, Glucose 152 H, Calcium 9.7 06/09/23 19:45: PT Cancelled, INR Cancelled, APTT Cancelled 06/09/23 20:57: PT 14.6, INR 1.1, APTT 100.9 H* 06/10/23 06:03: WBC 5.0, RBC 5.21, Hgb 15.6, Hct 46.6, MCV 89.4, MCH 29.9, MCHC 33.5, Plt Count 314, MPV 10.0, Immature Gran % (Auto) 0.800, Neut % (Auto) 51.4, Lymph % (Auto) 35.7, [place] % (Auto) 8.7, Eos % (Auto) 1.8, Baso % (Auto) 1.6 H, Absolute Neuts (auto) 2.6, Nucleated RBC % 0, PT 13.7, INR 1.1, APTT 31.1, Sodium 141, Potassium 4.1, Chloride 111 H, Carbon Dioxide 24.0, Anion Gap 6, BUN 8, Creatinine 1.00, Est GFR (MDRD) Af Amer 105, Est GFR (MDRD) Non-Af 87, BUN/Creatinine Ratio 8.0 L, Glucose 121 H, Calcium 8.8, Magnesium 2.1, Total Bilirubin 1.00 06/10/23 12:28: APTT 34.7 Rhythm: EKG: ECHO: Stress Test: Cardiac Cath: PCI: CT Surgery: Holter monitor: EPS: PPM: CXR: Chest CT Scan: Radiography Diagnostic Testing: Radiology Impression Chest X-Ray 06/09/23 18:05 IMPRESSION: No acute radiographic abnormalities. Electronically Signed: Quirino Jones MD at 19:42 EST ,
--- NOTE | 2023-06-10 19:18 | PCI.CARDCATH ---
PCI Cardiac Cath Report PCI Report: DATE OF PROCEDURE: 06/10/2023 PROCEDURES PERFORMED: 1. Selective left and right coronary angiography. 2. Moderate conscious sedation Indications FOR PROCEDURE: NSTEMI Complications: NONE Specimen: NONE Access: Right Radial Artery Hemostasis: TR band DESCRIPTION OF PROCEDURE: After informed consent was obtained, the patient was brought down to the quality lab technician in a fasting state. Right wrist area was prepped, draped and sterilized in the usual fashion. Moderate conscious sedation, administration, documentation and physiologic monitoring of the IV conscious sedation was performed under my direct supervision by a trained registered nurse. Intraservice time started?at 15:32?and ended?at 15:49. Using modified Seldinger technique, right radial artery was then cannulated. A 6-[place] sheath was inserted, sheath was flushed. 4F JR4 catheter was used to engage the right coronary and 5f JL-4 catheter was used to engage Left coronary artery. Multiple orthogonal images were then taken. Aortic valve was not crossed due to the concern of LV mass. After reviewing angiogram, Wire and catheter were taken out. TR band was applied. The patient was sent to floor in stable condition. HEMODYNAMICS: Was not obtained, as aortic valve was not crossed due to the concern of LV mass DESCRIPTION OF CORONARY ANATOMY: The left main originates from the left coronary sinus of Valsalva in the usual fashion. There was good reflux of dye from this vessel into the coronary sinus, there was no ventriculization or dampening of pressure noted.??The LM bifurcates into LAD and LCX . It has no significant CAD noted. The left anterior descending artery originates from the left main in the usual fashion. It runs in the anterior interventricular groove giving rise to large size diagonal branch and multiple septal perforators and continues distally to wrap around the apex. There was no significant epicardial coronary artery disease involving the system. Left circumflex artery originates from the bifurcation in the usual fashion, then courses its way down the lateral atrioventricular groove, giving rise to 2 large-sized OM branches and continues distally as a left PDA which make it Codominant artery with the RCA. There was no significant epicardial coronary artery disease involving the system. RCA originates from the right coronary sinus of Valsalva in the usual fashion, There was good reflux if dye from this vessel into the coronary sinus, there was no ventriculization or dampening of pressure noted. It then courses its way down the lateral atrioventricular groove, giving rise to acute marginal branch and continues distally supply right PDA, which makes it Codominant artery. There was no significant epicardial coronary artery disease involving the system. CONCLUSION: 1. There was no significant epicardial coronary artery disease noted. Recommendations: Continue treatment of NSTEMI with heparin drip for at least 48 hours. Start patient on aspirin and high intensity statin. Restart home dose beta-franny/Coreg Obtain ESR and CRP. Patient elevated troponin could be related to myocarditis however recommend to obtain CTA chest to rule out other causes of elevated troponin. Patient will need cardiac MRI for further evaluation of the cardiac mass and to rule out myocarditis Continue to follow-up the patient on telemetry
--- NOTE | 2023-06-10 20:39 | PCM.HOSP.N ---
Hospitalist Note Dr. Barrera notified Dr. Tierney/Dr. Mejia about additional Cardiology recommendations. He discussed the case with Dr. Roland who recommended discussions with patient PCP which Dr. Westfall performed to obtain CTA chest and in the interim start patient on eliquis 5 mg twice daily which was ordered in addition to the continued plan for outpatient cardiac MRI per PCP. Patient per myself was contacted and updated about this plan of care and the new medication addition.
--- OUTSIDE RECORDS SUMMARY | 2023-06-10 20:56 | XMS RPT_ITS | CCD ---
Author Name Unknown Address [address] [facility] [address] [place] [address] Organization [facility] Care Team Providers Care Production Recorder Name Role Phone RFANCHESKA MARTÍNEZ, HERMELINDO Roa Primary Care Physician [phone] Unavailable Primary Care Provider Leonel Saenz MD, Henna Scruggs Primary Care Provider Letty MARTÍNEZ, Henna Scruggs Primary Care Provider Letty MARTÍNEZ, Henna Scruggs Primary Care Provider Henna Saenz MD Primary Care Provider HENNA SAENZ Attending Unavailabl e HENNA SAENZ Referring Unavailabl e HENNA SAENZ Primary Care Unavailabl e FATCHIKOVA, RONNY (RES) Attending HENNA Harmon Primary Care Unavailabl e FATCHIKOVA, RONNY (RES) Referring UnavaHENNA Hennign Primary Care Unavailabl e FATCHIKOVA, RONNY (RES) Referring Unavai lable HENNA SAENZ Primary Care Unavailabl e FATCHIKOVA, RONNY (RES) Referring Unavai lable HENNA SAENZ Primary Care Unavailabl e FATCHIKOVA, RONNY (RES) Attending HENNA Harmon Primary Care Unavailabl e FATCHIKOVA, RONNY (RES) Referring Unavai lable HENNA SAENZ Primary Care Unavailabl e Medications Current Medications Medication Drug Class(es) Dates Sig (Normalized) Sig (Original) Aspirin (1 source) Platelet Aggregation Inhibitor, Nonsteroidal Anti-inflammatory Drug Start: 04-06-2021 End: 04-11-2021 aspirin 325 mg oral delayed release tablet Dose : 325 mg = 1 tab(s), Oral, BID, # 10 tab(s), 0 Refill(s), Pharmacy: [facility], 188, cm, 04/05/21 6:51:00 EDT, Height, kg, 04/05/21 6:51:00 EDT, Dosing Weight Start Date: 04/06/21 Stop Date: 04/11/21 Status: Ordered colchicine 0.6 mg oral tablet (1 source) Start: 04-06-2021 End: 11-02-2021 colchicine 0.6 mg oral tablet Dose : 0.6 mg = 1 tab(s), Oral, BID, # 60 tab(s), 6 Refill(s), Pharmacy: [facility], 188, cm, 04/05/21 6:51:00 EDT, Height, kg, 04/05/21 6:51:00 EDT, Dosing Weight Start Date: 04/06/21 Stop Date: 11/02/21 Status: Ordered iv contrast (will be provided with radiology test) (4 sources) Start: 10-13-2022 End: 10-14-2022 iv contrast (will be provided with radiology test) CT ABD/PEL -Inject, intravenously, once for 1 dose.No IV access, insert saline lock prior to the beginning of sedation, infusion, injection of imaging exam. Discontinue saline lock post exam. If Pt. has a central line or IVAD, may access for administration according to line specific nursing protocol. Once exam is complete flush line and de-access according to line specific nursing protocol in the CT contrast administration guidelines link. 1 Each 0 10/13/2022 10/14/2022 Active Completed/Discontinued Medications Medication Drug Class(es) Dates Sig (Normalized) Sig (Original) apixaban 5 mg oral tablet (10 sources) Factor Xa Inhibitor Start: 06-15-1970 End: 11-02-2021 apixaban (ELIQUIS) 5 mg tab(s) Eliquis 5 mg tablet 0 06/15/1969 Active Problems Active Problems Problem Classification Problem Date Documented Da te Episodic/Chronic Abdominal pain (14 sources) Epigastric pain; Translations: [Epigastric pain] Onset: 04-01-2022 Episodic Acute myocardial infarction (1 source) ST elevation (STEMI) myocardial infarction of unspecified site; Translations: [ST elevation (STEMI) myocardial infarction of unspecified site] Onset: 04-05-2021 Chronic Essential hypertension (2 sources) Hypertensive disorder; Translations: [Essential (primary) hypertension] Onset: 10-16-2022 10-16-2022 Chronic Other liver diseases (2 sources) Increased bilirubin level; Translations: [Unspecified jaundice] Episodic Other nutritional; endocrine; and metabolic disorders (2 sources) Obese class II; Translations: [Obesity, unspecified] Onset: 10-16-2022 10-16-2022 Chronic Karrie-; endo-; and myocarditis; cardiomyopathy (except that caused by tuberculosis or sexually transmitted disease) (1 source) Acute pericarditis; Translations: [Acute pericarditis, unspecified] Onset: 04-05-2021 Episodic Past or Other Problems Problem Classification Problem Date Documented Da te Episodic/Chronic Other liver diseases (1 source) Unspecified jaundice; Translations: [Elevated bilirubin] Onset: 05-20-2022 Episodic Urinary tract infections (2 sources) Urinary tract infectious disease; Translations: [Urinary tract infection, site not specified] Onset: 05-20-2022 Episodic Results Test Name Value Interpretation Reference Range Facil ity Vital Signs Date Time Vital Sign Value Performing Clinician Facility 10-27-2022 10:20-0400 Body weight 122.47 kg Ronny Molina MD Work Phone: [facility] 10-27-2022 10:20-0400 Diastolic blood pressure 92 mm[Hg] Ronny Molina MD Work Phone: [facility] 10-27-2022 10:20-0400 Heart rate 83 /min Ronny Molina MD Work Phone: [facility] 10-27-2022 10:20-0400 SaO2% (BldA) [Mass fraction] 97 % Ronny Molina MD Work Phone: [facility] 10-27-2022 10:20-0400 Systolic blood pressure 140 mm[Hg] Ronny Molina MD Work Phone: [facility] 10-13-2022 10:36-0400 Body weight 125.1 kg Ronny Molina MD Work Phone: [facility] 10-13-2022 10:36-0400 Diastolic blood pressure 64 mm[Hg] Ronny Molina MD Work Phone: [facility] 10-13-2022 10:36-0400 Heart rate 110 /min Ronny Molina MD Work Phone: [facility] 10-13-2022 10:36-0400 SaO2% (BldA) [Mass fraction] 98 % Ronny Molina MD Work Phone: [facility] 10-13-2022 10:36-0400 Systolic blood pressure 128 mm[Hg] Ronny Molina MD Work Phone: [facility] 05-20-2022 14:21-0500 Body weight 140.62 kg Ronny Molina MD Work Phone: [facility] 05-20-2022 14:21-0500 Diastolic blood pressure 80 mm[Hg] Ronny Molina MD Work Phone: [facility] 05-20-2022 14:21-0500 Heart rate 96 /min Ronny Molina MD Work Phone: [facility] 05-20-2022 14:21-0500 SaO2% (BldA) [Mass fraction] 99 % Ronny Molina MD Work Phone: [facility] 05-20-2022 14:21-0500 Systolic blood pressure 144 mm[Hg] Ronny Molina MD Work Phone: [facility] 04-15-2022 14:34-0400 Body weight 141.52 kg Ronny Molina MD Work Phone: [facility] 04-15-2022 14:34-0400 Diastolic blood pressure 110 mm[Hg] Ronny Molina MD Work Phone: [facility] 04-15-2022 14:34-0400 Heart rate 102 /min Ronny Molina MD Work Phone: [facility] 04-15-2022 14:34-0400 SaO2% (BldA) [Mass fraction] 93 % Ronny Molina MD Work Phone: [facility] 04-15-2022 14:34-0400 Systolic blood pressure 140 mm[Hg] Ronny Molina MD Work Phone: [facility] 04-01-2022 09:58-0400 Diastolic blood pressure 93 mm[Hg] Henna Saenz MD Work Phone: [facility] 04-01-2022 09:58-0400 Systolic blood pressure 139 mm[Hg] Henna Saenz MD Work Phone: [facility] 04-01-2022 09:57-0400 Body temperature 97.3 [degF] Henna Saenz MD Work Phone: [facility] 04-01-2022 09:57-0400 Body weight 138.35 kg Henna Saenz MD Work Phone: [facility] 04-01-2022 09:57-0400 Heart rate 91 /min Henna Saenz MD Work Phone: [facility] 04-01-2022 09:57-0400 Respiratory rate 20 /min Henna Saenz MD Work Phone: [facility] 04-01-2022 09:57-0400 SaO2% (BldA) [Mass fraction] 97 % Henna Saenz MD Work Phone: [facility] 04-06-2021 07:11-0400 Body temperature 98.96 [degF] RICKY CELIS MD [facility] 04-06-2021 07:11-0400 Diastolic blood pressure 80 mm[Hg] RICKY CELIS MD [facility] 04-06-2021 07:11-0400 Heart rate 76 /min RICKY CELIS MD [facility] 04-06-2021 07:11-0400 Mean blood pressure 95 mm[Hg] RICKY CELIS MD [facility] 04-06-2021 07:11-0400 Reason For Taking VItal Signs RICKY CELIS MD [facility] 04-06-2021 07:11-0400 Respiratory rate 18 /min RICKY CELIS MD [facility] 04-06-2021 07:11-0400 Systolic blood pressure 124 mm[Hg] RICKY CELIS MD [facility] 04-06-2021 04:00-0400 Heart rate 69 /min RICKY CELIS MD [facility] 04-06-2021 04:00-0400 Reason For Taking VItal Signs RICKY CELIS MD [facility] 04-05-2021 22:44-0400 Body temperature 98.24 [degF] RICKY CELIS MD [facility] 04-05-2021 22:44-0400 Diastolic blood pressure 88 mm[Hg] RICKY CELIS MD [facility] 04-05-2021 22:44-0400 Heart rate 97 /min RICKY CELIS MD [facility] 04-05-2021 22:44-0400 Mean blood pressure 103 mm[Hg] RICKY CELIS MD [facility] 04-05-2021 22:44-0400 Reason For Taking VItal Signs RICKY CELIS MD [facility] 04-05-2021 22:44-0400 Respiratory rate 18 /min RICKY CELIS MD [facility] 04-05-2021 22:44-0400 Systolic blood pressure 132 mm[Hg] RICKY CELIS MD [address] [place] [address] 04-05-2021 20:10-0400 Body temperature 98.42 [degF] RICKY CELIS MD [facility] 04-05-2021 20:10-0400 Diastolic blood pressure 98 mm[Hg] RICKY CELIS MD [facility] 04-05-2021 20:10-0400 Mean blood pressure 116 mm[Hg] RICKY CELIS MD [facility] 04-05-2021 20:10-0400 Respiratory rate 16 /min RICKY CELIS MD [facility] 04-05-2021 20:10-0400 Systolic blood pressure 152 mm[Hg] RICKY CELIS MD [facility] 04-05-2021 06:51-0400 Body height 188 cm RICKY CELIS MD [address] [place] [address] 04-05-2021 06:51-0400 Body weight 123.5 kg RICKY CELIS MD [facility] 04-05-2021 06:51-0400 Body weight 34.94 kg/m2 RICKY CELIS MD [facility] 04-05-2021 05:06-0400 Body weight 123.5 kg RICKY CELIS MD [facility] 04-05-2021 05:06-0400 Heart rate 112 /min RICKY CELIS MD [facility] Encounters Encounter Date Encounter Type Care Provider Facility Start: 11-11-2022 Refdougie kelly MD Work Phone: [facility] [place] Procedures Date Procedure Procedure Detail Performing Clinician Start: 10-13-2022 Us abdominal real time w/image limited Ronny Molina MD Work Phone: Start: 10-13-2022 Ct abdomen & pelvis w/contrast material Ronny Molina MD Work Phone: Start: 10-07-2022 Hepatobil syst imag inc gb w/pharma intervenj Ronny Molina MD Work Phone: Start: 05-13-2022 Us abdominal real time w/image limited Ronny Molina MD Work Phone: History of cholecystectomy S/P cholecyste ctomy Ronny Molina MD Work Phone: Plan of Treatment Date Care Activity Detail Author Start: 04-01-2023 ANNUAL PCP TEAM CHRONIC DISEASE VISIT ANNUAL PCP TEAM CHRONIC DISEASE VISIT [facility] Start: 02-13-2023 Influenza vaccination INFLUENZA (Season Ended) [facility] Start: 06-15-2022 DEPRESSION ASSESSMENT DEPRESSION ASSESSMENT [facility] Start: 06-03-2022 End: 06-19-2023 Hepatobil syst imag inc gb w/pharma intervenj [facility] HEPATOBILIARY W EF AND/OR RX Radiology Routine Elevated bilirubin Right upper quadrant pain Expected: 06/03/2022, Expires: 06/19/2023 [facility] Work Phone: Payers Date Payer Category Payer Private Health Insurance HUMANA HUMANA MEDICAID [facility] [id number] 2022-Present [address] [address] [place] [address] Medicaid [id number] 2021 Medicaid MEDICAID [facility] MEDICAID [id number] 2021-Present [phone] [address] [place] [address] Medicaid [id number] 2021 Medicaid [id number] Social History Date Type Detail Facility Start: 04-05-2021 End: 06-15-1999 Smoker (finding) [facility] Start: 1980 Sex Assigned At Male [facility] Tobacco smoking stat [facility] Tobacco smoking consumption unknown [facility] Start: 1980 Sex Assigned At Not on file [facility] Start: 04-01-2022 [facility] Start: 04-01-2022 End: 10-14-2022 Tobacco use and exposure User of smokeless tobacco [facility] History of tobacco use Chews Tobacco [facility] Start: 04-01-2022 End: 10-27-2022 Alcohol intake Ex-drinker (finding) [facility] Start: 04-01-2022 Education 21 [facility] Start: 03-22-2022 End: 05-13-2022 Exposure to SARS-CoV-2 (event) Not sure [facility] Start: 10-14-2022 [facility] End: 06-15-1999 History of tobacco use Cigarette Smoker [facility] Start: 10-14-2022 End: 10-27-2022 Cigarettes smoked current (pack per day) - Reported 0.5 [facility] Start: 10-14-2022 Alcohol Comment has not drank in 2 months due to stomach [facility] Clinical Notes 12-02-2020 to 10-27-2022 Ronny Molina MD - 10/27/2022 10:30 AM EDTAddendum Note - Ronny Molina MD - 10/13/2022 3:05 PM Nicole Molina MD - 10/13/2022 10:45 AM EDTPatient InstructionsPatient Instructions Note Date & Type Note Facility 10-27-2022 History of Present illness Narrative Images from the original note were not included. [facility] PRIMARY CARE PHYSICIAN: Henna Saenz MD Subjective CHIEF COMPLAINT: s/p robo az HISTORY OF PRESENT ILLNESS: This is a 42 year old malepresenting for follow-up after a robotic cholecystectomy 10/16/22. The patient reports good pain control, is tolerating diet, denies nausea or vomiting, has good bowel function. He states he feels infinitely better after surgery and barely required pain medications. He has been ambulating without issues and working in his yard. All questions were satisfactorily answered. PAST MEDICAL HISTORY Diagnosis Date Anxiety state Arthritis shoulders Coronary artery disease no supervisor wet room sees PCP Dr Letty PRADO Mar 2021 hospitalized Hypertension controlled w meds Pericarditis after COVID in Mar 2021 hospitalized 1.5 days no oxygen PAST SURGICAL HISTORY Procedure Laterality Date PAST SURGICAL HISTORY OF Left left knee at 13 yr old broken fibula has hardware PAST SURGICAL HISTORY OF heart cath Mar 2021 clean FAMILY HISTORY Problem Relation Age of Onset Cancer Father Hodgkin Lymphoma Father Social History Tobacco Use Smoking status: Former Packs/day: 0.50 Years: 1.00 Pack years: 0.50 Types: Cigarettes Quit date: 1999 Years since quittin.3 Smokeless tobacco: Current Types: Chew Vaping Use Vaping Use: Never used Substance Use Topics Alcohol use: Not Currently Alcohol/week: 4.0 standard drinks Types: 4 Cans of beer per week Comment: has not drank in 2 months due to stomach Drug use: Yes Frequency: 0.5 times per week Types: Marijuana Comment: Medical Marijuana for sleep- oil pen (Not in a hospital admission) No current facility-administered medications for this visit. ALLERGIES No Known Allergies COMPLETE REVIEW OF SYSTEMS: As per HPI Objective PHYSICAL EXAM: BP 140/92 Pulse 83 Wt 270 lb (122.5kg) SpO2 97% Physical Exam Performed GENERAL: Alert, no distress, cooperative HEENT: EOMI, normocephalic SKIN: Skin color, texture, turgor normal. LUNGS: Lungs clear to auscultation, Good diaphragmatic excursion CARDIAC: Rhythm: regular rate and rhythm, Rate: normal ABDOMEN: Soft, nontender and incisions clean, dry, intact. No erythema, no drainage. EXTREMITIES: Extremities normal, no deformities, edema, clubbing or skin discoloration. Good capillary refill. NEURO: Grossly normal cognition, motor function, and cranial nerves III-XII, Gait normal. Reflexes normal and symmetric. Sensation grossly intact PULSES: 2+ radial, 2+ carotid DATA: Diagnostic tests reviewed for today's visit: Pathology: A. Gallbladder, laparoscopic cholecystectomy: - Acalculus gallbladder with focal cholesterolosis. 42 year old male s/p robo cholecystectomy with ICG cholangiography 10/16/22 -Patient is doing well postoperatively -They can follow-up as needed or call office with questions or concerns -Diet as tolerated -He can return to full activity 1 more week Please Note: This office note has been created using [employer], a speech recognition software program, and may contain errors including punctuation, grammar, spelling, gender, and inappropriate words or phrases that pertain to the system. SIGNATURE: Ronny Molina MD PATIENT NAME: Pratik Ennis DATE: October 26, 2022 TIME: 7:55 PM PAGER/CONTACT #: documented in this encounter [facility] 10-13-2022 Miscellaneous Notes Addended by: RONNY MOLINA on: 10/13/2022 03:05 PM Modules accepted: Orders documented in this encounter [facility] 10-13-2022 History of Present illness Narrative Images from the original note were not included. [facility] PRIMARY CARE PHYSICIAN: Henna Saenz MD Subjective CHIEF COMPLAINT: abdominal pain HISTORY OF PRESENT ILLNESS: Mr. Ennis is a 42 year old male who presents for abdominal pain for 4 days. Patient states pain began 4 days ago on the right side of his abdomen and radiates to his epigastric region. He has had associated nausea but no emesis. He states he has been able to eat however has been decreased from his usual. He states he does not believe the food makes his pain worse. He he states he ate pasta with red sauce prior to the pain beginning a few days ago. He states that this time it is improved. He has been having bowel movements and passing flatus without issues. He has not had any heartburn and has been taking his PPI as directed. He denies any NSAIDs. He takes Tylenol for prior left shoulder pain. He denies any prior EGD or colonoscopy. He denies prior abdominal surgeries. Prior history of STEMI and acute pericarditis in 2021. He is currently on Plavix. Last dose was this morning. He endorses tobacco use (chew). He states he was a social drinker but has not consumed any alcohol in over 2 months. Denies any drug use. No past medical history on file. No past surgical history on file. FAMILY HISTORY Problem Relation Age of Onset Cancer Father Hodgkin Lymphoma Father Social History Tobacco Use Smoking status: Never Smokeless tobacco: Current Types: Chew Vaping Use Vaping Use: Never used Substance Use Topics Alcohol use: Not Currently Drug use: Never (Not in a hospital admission) No current facility-administered medications for this visit. ALLERGIES No Known Allergies COMPLETE REVIEW OF SYSTEMS: PAIN ASSESSMENT: Negative for pain, history of chronic pain, or current treatment for a chronic pain condition. GENERAL: No weight loss, malaise or fevers HEENT: Negative for frequent or significant headaches NECK: Negative for lumps, goiter, pain and significant neck swelling RESPIRATORY: Negative for cough, hemoptysis, wheezing, COPD, dyspnea or shortness of breath CARDIOVASCULAR: Negative for chest pain, leg swelling, CHF or palpitations GI: See HPI : No history of dysuria, frequency or incontinence MUSCULOSKELETAL: Negative for joint pain or swelling, back pain or muscle pain SKIN: Negative for lesions, rash, and itching HEMATOLOGY/LYMPHOLOGY: Negative for prolonged bleeding, bruising easily or swollen nodes ENDOCRINE: Negative for cold or heat intolerance, polyuria, polydipsia and goiter NEURO: No history of headaches, syncope, paralysis, seizures or tremors Objective PHYSICAL EXAM: BP 128/64 Pulse 110 Wt 275 lb 12.8 oz (125.1kg) SpO2 98% Physical Exam Performed GENERAL: Alert, no distress, cooperative HEENT: EOMI, normocephalic SKIN: Skin color, texture, turgor normal. LUNGS: Lungs clear to auscultation, Good diaphragmatic excursion CARDIAC: Rhythm: regular rate and rhythm, Rate: normal ABDOMEN: Soft, nontender and nondistended EXTREMITIES: Extremities normal, no deformities, edema, clubbing or skin discoloration. Good capillary refill. NEURO: Grossly normal cognition, motor function, and cranial nerves III-XII, Gait normal. Reflexes normal and symmetric. Sensation grossly intact PULSES: 2+ radial, 2+ carotid DATA: Diagnostic tests reviewed for today's visit: 04/01/22 Lipase 37 Tbili 1.1 Alk phos 50 AST 33 ALT 39 Hgb 18 PLT 348 IMAGING: HIDA 10/07/22 No findings of cholecystitis. Patent common bile duct. Normal gallbladder ejection fraction. CT ABD/PEL 05/13/22 Heterogeneous appearance of the right lower renal pole. Similar findings to lesser extent in the left upper and lower renal poles. Findings concerning for pyelonephritis. Recommend appropriate clinical/laboratory correlation. No suggestion for ascending UTI recommend follow-up renal protocol CT scan or abdominal MRI with contrast to exclude possibility of suspicious renal neoplasm (particularly in the right lower pole). Nonspecific appearance of the lower urinary bladder and adjacent upper prostate region. Findings may simply represent volume averaging of adjacent blood vessels, although possibility of cystitis not excluded. Mild prostatomegaly. Pancreas and peripancreatic space are unremarkable. Nonspecific patchy peripheral groundglass opacities in the right lower lobe. Recommend clinical correlation to exclude possibility of inflammatory/infectious pneumonitis. Recommend short-term follow-up chest CT. US RUQ 05/13/22 Biliary: No intrahepatic biliary duct dilation. CBD: 0.4 cm at the hilum. Gallbladder: Normal caliber -Contents: No cholelithiasis -Wall: Normal -Other: No pericholecystic fluid. 42 year old male with right upper quadrant and epigastric abdominal pain -Given prolonged length of symptoms, will obtain CT scan and right upper quadrant ultrasound to check for acute source. We will also obtain lab work -Patient symptoms seem to be consistent with a biliary source, if work-up is negative, would recommend laparoscopic cholecystectomy soon. -Discussed presentation to ED with patient, however he declines to do so at this time as he is feeling better. We discussed any changes or worsening symptoms, he should call office and present to ED. -Will follow-up results of testing from today, patient may need to be admitted pending results -He is currently on Plavix, last dose was this morning, asked patient to hold medication until after work-up is completed. -Patient will see his primary for further follow-up for renal protocol CT and short-term chest imaging/follow up on incidental findings Please Note: This office note has been created using [employer], a speech recognition software program, and may contain errors including punctuation, grammar, spelling, gender, and inappropriate words or phrases that pertain to the system. SIGNATURE: Ronny Molina MD PATIENT NAME: Pratik Ennis DATE: 10/13/2022 TIME: 11:01 AM PAGER/CONTACT #: documented in this encounter [facility] 10-12-2022 Instructions Ronny Molina MD - 10/12/2022 11:59 AM EDT Images from the original note were not included. Bowel Preparation Instructions for: Golytely, Nulytely, Trilyte or Colyte (polyethylene glycol 3350 and electrolytes) IF YOU DO NOT FOLLOW THESE DIRECTIONS, YOUR COLONOSCOPY WILL BE CANCELLED. [place] Instructions: Your bowel must be empty so that your doctor can clearly view your colon. Follow all of the instructions in this handout EXACTLY as they are written. Do NOT eat any solid food the ENTIRE day before your colonoscopy. Drink only clear liquids. Buy your bowel preparation at least 5 days before your colonoscopy. TRANSPORTATION on the Day of Your Exam A responsible person MUST be present with you at Check In prior to your colonoscopy and REMAIN in the endoscopy area until you are discharged. You are NOT ALLOWED to drive, take a taxi or bus, or leave the Endoscopy Center ALONE. If you do not have a responsible auto crane driver (family member or friend) with you to take you home, your exam cannot be done with sedation and will be cancelled. Please bring a list of all of your current medications, including any Over-the Counter medications with you. Medications If you take insulin, diabetic medications or blood thinners such as Coumadin (warfarin), Plavix (clopidogrel), Ticlid (ticlopidine hydrochloride), Agrylin (anagrelide), Xarelto (Rivaroxaban), Pradaxa (Dabigatran), Eliquis (Apixaban), and Effient (Prasugrel). You MUST call the doctors who orders those medicines for instructions on altering the dosage before your colonoscopy. All other medications should be taken the day of the exam with a sip of water including ASPIRIN. Five (5) Days Before Your Colonoscopy Do NOT take medicines that stop diarrhea - such as Imodium, Kaopectate, or Pepto Bismol. Do NOT take fiber supplements - such as Metamucil, Citrucel, or Perdiem. Do NOT take products that contain iron - such as multi-vitamins (the label lists what is in the products). Do NOT take Vitamin E. Buy the prescription bowel preparation solution at your local pharmacy or drugstore pharmacy. 05/2019 Bowel Preparation Instructions for: Golytely, Nulytely, Trilyte or Colyte (polyethylene glycol 3350 and electrolytes) Three (3) Days Before Your Colonoscopy Do NOT eat high-fiber foods - such as popcorn, beans, seeds (flax, sunflower, quinoa), multigrain bread, nuts, salad/vegetables, or fresh and dried fruit. One (1) Day Before Your Colonoscopy Only drink clear liquids the ENTIRE DAY before your colonoscopy. Do NOT eat any solid foods. Drink at least 8 ounces of clear liquids every hour after waking up. The clear liquids you can drink include: Clear Liquid (NO RED LIQUIDS) DO NOT DRINK Gatorade, Pedialyte or Powerade Clear broth or bouillon Coffee or tea (no milk or non-dairy creamer) Carbonated and non-carbonated soft drinks Jonathan-Aid or other fruit flavored drinks Strained fruit juices (no pulp) Jell-O, popsicles, hard candy Water Alcohol Milk or non-dairy creamers Noodles or vegetables in soup Juice with pulp Liquid you cannot see through Do not use tobacco/vaping products The bowel preparation solution will be consumed in two parts. Mix the solution the evening before your colonoscopy and refrigerate before drinking. You may add the flavor pack that came with the bowel preparation. Do NOT add ice, sugar or any other flavorings to the solution. Part 1 At 6:00 PM - Evening before your colonoscopy Drink an 8-oz glass of bowel preparation every 10 minutes for a total of 8 glasses. You may continue to drink clear liquids until midnight. Part 2 On the day of your colonoscopy you may drink clear liquids up to (three) 3 hours before your procedure. 4 1/2 hours before your colonoscopy Drink an 8-oz glass of bowel preparation every 10 minutes for a total of 8 glasses. Fifteen (15) minutes later, drink an 8-oz glass of clear liquids every 15 minutes for a total of 2 glasses. You may continue to drink clear liquids up to (three) 3 hours before your exam. 2 05/2019 documented in this encounter [facility] 10-07-2022 Note HNO ID: [id number] Author: RT Codi(R) Service: ? Author Type: Technologist Type: Progress Notes Filed: 10/07/2022 11:02 AM Note Text: RADIOLOGY SERVICE PROGRESS NOTE SERVICE DATE: 10/07/2022 SERVICE TIME: 11:01 AM PATIENT IDENTITY VERIFICATION COMPLETED USING TWO (2) STANDARD IDENTIFIERS: Name and Date of confirmed by patient verbally FALL SCREENING: Has the patient had 2 falls in the last year or 1 fall with injury or currently using an Ambulatory Assistive Device (Walker, Cane, Wheelchair, Crutches, etc.)? No PATIENT GENDER DATA: .male ALLERGIES: Reviewed and unchanged MEDICATIONS REVIEWED: Not applicable PATIENT RELEVANT IMPLANT DATA REVIEWED: Not Applicable CREATININE: Creatinine Date Value Ref Range Status 04/01/2022 1.19 0.50 - 1.40 mg/dL Final Comment: Patients receiving either N-Acetylcysteine (NAC) or Metamizole prior to venipuncture, may have falsely depressed results. Estimated Glomerular Filtration Rate Date Value Ref Range Status 04/01/2022 78 >=60 mL/min/1.73m? Final Comment: Estimated Glomerular Filtration Rate (eGFR) is calculated using the 2020 CKD-EPI creatinine equation. This equation utilizes serum creatinine, sex, and age as parameters. The creatinine assay has traceable calibration to isotope dilution-mass spectrometry. Refer to KDIGO guidelines for clinical interpretation. In patients with unstable renal function, e.g. those with acute kidney injury, the eGFR may not accurately reflect actual GFR. P.O.C.T. RESULTS: N/A October 07, [address] PERFORMED: No IV SITE: Ambulatory: NM only - direct IV injection in the Right hand POST EXAM PIV STATUS: Not applicable PROCEDURE TYPE: NM INJECT: HIDA SCAN. 5.8 mCi Tc99m CHOLETEC. No other medications given.. ADMINISTRATION TIME: 1050 PATIENT DISCHARGED TO: Ambulatory patient, left [place] department area. A Diagnostic radioactive procedure has taken place, with no further precautions necessary other than routine body substance precautions. More information regarding radiation safety can be found using this link: [email or web address] [email or web address] SIGNATURE: RT Codi(R) PATIENT NAME: Pratik Ennis DATE: October 07, 2022 TIME: 11:01 AM PAGER/CONTACT #: [facility] 10-07-2022 History of Present illness Narrative RADIOLOGY SERVICE PROGRESS NOTE SERVICE DATE: 10/07/2022 SERVICE TIME: 11:01 AM PATIENT IDENTITY VERIFICATION COMPLETED USING TWO (2) STANDARD IDENTIFIERS: Name and Date of confirmed by patient verbally FALL SCREENING: Has the patient had 2 falls in the last year or 1 fall with injury or currently using an Ambulatory Assistive Device (Walker, Cane, Wheelchair, Crutches, etc.)? No PATIENT GENDER DATA: .male ALLERGIES: Reviewed and unchanged MEDICATIONS REVIEWED: Not applicable PATIENT RELEVANT IMPLANT DATA REVIEWED: Not Applicable CREATININE: Creatinine Date Value Ref Range Status 04/01/2022 1.19 0.50 - 1.40 mg/dL Final Comment: Patients receiving either N-Acetylcysteine (NAC) or Metamizole prior to venipuncture, may have falsely depressed results. Estimated Glomerular Filtration Rate Date Value Ref Range Status 04/01/2022 78 >=60 mL/min/1.73m Final Comment: Estimated Glomerular Filtration Rate (eGFR) is calculated using the 2020 CKD-EPI creatinine equation. This equation utilizes serum creatinine, sex, and age as parameters. The creatinine assay has traceable calibration to isotope dilution-mass spectrometry. Refer to KDIGO guidelines for clinical interpretation. In patients with unstable renal function, e.g. those with acute kidney injury, the eGFR may not accurately reflect actual GFR. P.O.C.T. RESULTS: N/A October 07, [address] PERFORMED: No IV SITE: Ambulatory: NM only - direct IV injection in the Right hand POST EXAM PIV STATUS: Not applicable PROCEDURE TYPE: NM INJECT: HIDA SCAN. 5.8 mCi Tc99m CHOLETEC. No other medications given.. ADMINISTRATION TIME: 1050 PATIENT DISCHARGED TO: Ambulatory patient, left [place] department area. A Diagnostic radioactive procedure has taken place, with no further precautions necessary other than routine body substance precautions. More information regarding radiation safety can be found using this link: [email or web address] [email or web address] SIGNATURE: RT Codi(Az) PATIENT NAME: Pratik Ennis DATE: October 07, 2022 TIME: 11:01 AM PAGER/CONTACT #: documented in this encounter [facility] 06-03-2022 Miscellaneous Notes APPROVED through 06/02/2023 PENDING, Pantoprazole Sodium 40MG dr maci Davalos: [id number] Cover My Meds documented in this encounter [facility] 06-02-2022 Miscellaneous Notes Patient has been identified by name and date of : Yes Last office visit in this department: 04/01/2022 RX INSTRUCTIONS: Patient aware RX will be sent to pharmacy. No need to notify patient. Patient phones requesting refills as follows: Requested Prescriptions Pending Prescriptions Disp Refills citalopram (CELEXA) 20 mg tablet 90 tablet 1 Sig: Take 1 tablet by mouth once daily. carvedilol (COREG) 3.125 mg tablet 180 tablet 1 Sig: Take 1 tablet by mouth twice daily with meals. pantoprazole DR (PROTONIX) 40 mg tablet 180 tablet 1 Sig: Take 1 tablet by mouth twice daily. 1 twice a day Please review and advise. Bianca Franco MA documented in this encounter [facility] 05-20-2022 Note HNO ID: [id number] Author: Ronny Molina MD Service: ? Author Type: Physician Type: Progress Notes Filed: 05/20/2022 4:04 PM Note Text: GENERAL SURGERY CLINIC PRIMARY CARE PHYSICIAN: Henna Saenz MD Subjective CHIEF COMPLAINT: Bloating and abdominal pain HISTORY OF PRESENT ILLNESS: Mr. Ennis is a 41 year old male who presents for follow-up after last visit on 04/15/2022 for bloating and abdominal pain. Since presentation, patient had 1 episode of right upper quadrant pain rating to back after eating burger and fries. He states he no longer has issues with vomiting after alcohol. He does note that when he does have beers, he does usually eat something more fatty like wings. He states its been a month since that episode. He states this last episode lasted a little bit over a day and diminished in quality as the day progressed. He denies any heartburn. He denies any fevers or chills. He denies any diarrhea or constipation. He denies dysuria or burning with urination. He denies any blood in urine or stool. He has been taking his PPI daily. No past medical history on file. No past surgical history on file. FAMILY HISTORY Problem Relation Age of Onset Cancer Father Hodgkin Lymphoma Father Social History Tobacco Use Smoking status: Never Smokeless tobacco: Current Types: Chew Vaping Use Vaping Use: Never used Substance Use Topics Alcohol use: Not Currently Drug use: Never (Not in a hospital admission) No current facility-administered medications for this visit. ALLERGIES No Known Allergies COMPLETE REVIEW OF SYSTEMS: As per HPI Objective PHYSICAL EXAM: BP 144/80 Pulse 96 Wt 310 lb (140.6kg) SpO2 99% Physical Exam Performed GENERAL: Alert, no distress, cooperative HEENT: normocephalic, EOMI SKIN: Skin color, texture, turgor normal. No rashes or lesions. LUNGS: Lungs clear to auscultation, Good diaphragmatic excursion CARDIAC: Rhythm: regular rate and rhythm, Rate: normal ABDOMEN: Soft, nontender, nondistended EXTREMITIES: Extremities normal, no deformities, edema, clubbing or skin discoloration. Good capillary refill., No ulcers NEURO: Grossly normal cognition, motor function, and cranial nerves III-XII, Gait normal. Reflexes normal and symmetric. Sensation grossly intact PULSES: 2+ radial, 2+ carotid DATA: Diagnostic tests reviewed for today's visit: IMAGING: CT abdomen pelvis 05/13/2022 Heterogeneous appearance of the right lower renal pole. Similar findings to lesser extent in the left upper and lower renal poles. Findings concerning for pyelonephritis. Recommend appropriate clinical/laboratory correlation. No suggestion for ascending UTI recommend follow-up renal protocol CT scan or abdominal MRI with contrast to exclude possibility of suspicious renal neoplasm (particularly in the right lower pole). Nonspecific appearance of the lower urinary bladder and adjacent upper prostate region. Findings may simply represent volume averaging of adjacent blood vessels, although possibility of cystitis not excluded. Mild prostatomegaly. Pancreas and peripancreatic space are unremarkable. Nonspecific patchy peripheral groundglass opacities in the right lower lobe. Recommend clinical correlation to exclude possibility of inflammatory/infectious pneumonitis. Recommend short-term follow-up chest CT. Right upper quadrant ultrasound 05/13/2022: 1. Pancreas completely obscured by overlying bowel gas. 2. Unremarkable liver, gallbladder and right kidney. No bile duct dilatation. 41 year old male with right upper quadrant pain, nausea, emesis. -At this follow-up, patient seems to associate his pain with fatty foods. Given his ultrasound did not show any gallstones or signs of cholecystitis, we will proceed with a HIDA scan evaluate for biliary dyskinesia. We will also repeat CMP to recheck for hyperbilirubinemia -EGD and colonoscopy discussed with patient if HIDA is negative. He elected to wait for HIDA results and see if there is still a need for scheduling after. -We will send for UA, patient will see his primary for further follow-up for renal protocol CT and short-term chest imaging/follow up on incidental findings Please Note: This office note has been created using [employer], a speech recognition software program, and may contain errors including punctuation, grammar, spelling, gender, and inappropriate words or phrases that pertain to the system. SIGNATURE: Ronny Molina MD PATIENT NAME: Pratik Ennis DATE: May 19, 2022 TIME: 11:28 AM PAGER/CONTACT #: [facility] 05-20-2022 Instructions Ronny Molina MD - 05/20/2022 2:25 PM EST Images from the original note were not included. Bowel Preparation Instructions for: Golytely, Nulytely, Trilyte or Colyte (polyethylene glycol 3350 and electrolytes) IF YOU DO NOT FOLLOW THESE DIRECTIONS, YOUR COLONOSCOPY WILL BE CANCELLED. Davalos Instructions: Your bowel must be empty so that your doctor can clearly view your colon. Follow all of the instructions in this handout EXACTLY as they are written. Do NOT eat any solid food the ENTIRE day before your colonoscopy. Drink only clear liquids. Buy your bowel preparation at least 5 days before your colonoscopy. TRANSPORTATION on the Day of Your Exam A responsible person MUST be present with you at Check In prior to your colonoscopy and REMAIN in the endoscopy area until you are discharged. You are NOT ALLOWED to drive, take a taxi or bus, or leave the Endoscopy Center ALONE. If you do not have a responsible auto crane driver (family member or friend) with you to take you home, your exam cannot be done with sedation and will be cancelled. Please bring a list of all of your current medications, including any Over-the Counter medications with you. Medications If you take insulin, diabetic medications or blood thinners such as Coumadin (warfarin), Plavix (clopidogrel), Ticlid (ticlopidine hydrochloride), Agrylin (anagrelide), Xarelto (Rivaroxaban), Pradaxa (Dabigatran), Eliquis (Apixaban), and Effient (Prasugrel). You MUST call the doctors who orders those medicines for instructions on altering the dosage before your colonoscopy. All other medications should be taken the day of the exam with a sip of water including ASPIRIN. Five (5) Days Before Your Colonoscopy Do NOT take medicines that stop diarrhea - such as Imodium, Kaopectate, or Pepto Bismol. Do NOT take fiber supplements - such as Metamucil, Citrucel, or Perdiem. Do NOT take products that contain iron - such as multi-vitamins (the label lists what is in the products). Do NOT take Vitamin E. Buy the prescription bowel preparation solution at your local [facility] 1 05/2019 Bowel Preparation Instructions for: Golytely, Nulytely, Trilyte or Colyte (polyethylene glycol 3350 and electrolytes) Three (3) Days Before Your Colonoscopy Do NOT eat high-fiber foods - such as popcorn, beans, seeds (flax, sunflower, quinoa), multigrain bread, nuts, salad/vegetables, or fresh and dried fruit. One (1) Day Before Your Colonoscopy Only drink clear liquids the ENTIRE DAY before your colonoscopy. Do NOT eat any solid foods. Drink at least 8 ounces of clear liquids every hour after waking up. The clear liquids you can drink include: Clear Liquid (NO RED LIQUIDS) DO NOT DRINK Gatorade, Pedialyte or Powerade Clear broth or bouillon Coffee or tea (no milk or non-dairy creamer) Carbonated and non-carbonated soft drinks Jonathan-Aid or other fruit flavored drinks Strained fruit juices (no pulp) Jell-O, popsicles, hard candy Water Alcohol Milk or non-dairy creamers Noodles or vegetables in soup Juice with pulp Liquid you cannot see through Do not use tobacco/vaping products The bowel preparation solution will be consumed in two parts. Mix the solution the evening before your colonoscopy and refrigerate before drinking. You may add the flavor pack that came with the bowel preparation. Do NOT add ice, sugar or any other flavorings to the solution. Part 1 At 6:00 PM - Evening before your colonoscopy Drink an 8-oz glass of bowel preparation every 10 minutes for a total of 8 glasses. You may continue to drink clear liquids until midnight. Part 2 On the day of your colonoscopy you may drink clear liquids up to (three) 3 hours before your procedure. 4 1/2 hours before your colonoscopy Drink an 8-oz glass of bowel preparation every 10 minutes for a total of 8 glasses. Fifteen (15) minutes later, drink an 8-oz glass of clear liquids every 15 minutes for a total of 2 glasses. You may continue to drink clear liquids up to (three) 3 hours before your exam. 2 05/2019 documented in this encounter [facility] 05-20-2022 History of Present illness Narrative Images from the original note were not included. [facility]AL SURGERY CLINIC PRIMARY CARE PHYSICIAN: Henna Saenz MD Subjective CHIEF COMPLAINT: Bloating and abdominal pain HISTORY OF PRESENT ILLNESS: Mr. Ennis is a 41 year old male who presents for follow-up after last visit on 04/15/2022 for bloating and abdominal pain. Since presentation, patient had 1 episode of right upper quadrant pain rating to back after eating burger and fries. He states he no longer has issues with vomiting after alcohol. He does note that when he does have beers, he does usually eat something more fatty like wings. He states its been a month since that episode. He states this last episode lasted a little bit over a day and diminished in quality as the day progressed. He denies any heartburn. He denies any fevers or chills. He denies any diarrhea or constipation. He denies dysuria or burning with urination. He denies any blood in urine or stool. He has been taking his PPI daily. No past medical history on file. No past surgical history on file. FAMILY HISTORY Problem Relation Age of Onset Cancer Father Hodgkin Lymphoma Father Social History Tobacco Use Smoking status: Never Smokeless tobacco: Current Types: Chew Vaping Use Vaping Use: Never used Substance Use Topics Alcohol use: Not Currently Drug use: Never (Not in a hospital admission) No current facility-administered medications for this visit. ALLERGIES No Known Allergies COMPLETE REVIEW OF SYSTEMS: As per HPI Objective PHYSICAL EXAM: BP 144/80 Pulse 96 Wt 310 lb (140.6kg) SpO2 99% Physical Exam Performed GENERAL: Alert, no distress, cooperative HEENT: normocephalic, EOMI SKIN: Skin color, texture, turgor normal. No rashes or lesions. LUNGS: Lungs clear to auscultation, Good diaphragmatic excursion CARDIAC: Rhythm: regular rate and rhythm, Rate: normal ABDOMEN: Soft, nontender, nondistended EXTREMITIES: Extremities normal, no deformities, edema, clubbing or skin discoloration. Good capillary refill., No ulcers NEURO: Grossly normal cognition, motor function, and cranial nerves III-XII, Gait normal. Reflexes normal and symmetric. Sensation grossly intact PULSES: 2+ radial, 2+ carotid DATA: Diagnostic tests reviewed for today's visit: IMAGING: CT abdomen pelvis 05/13/2022 Heterogeneous appearance of the right lower renal pole. Similar findings to lesser extent in the left upper and lower renal poles. Findings concerning for pyelonephritis. Recommend appropriate clinical/laboratory correlation. No suggestion for ascending UTI recommend follow-up renal protocol CT scan or abdominal MRI with contrast to exclude possibility of suspicious renal neoplasm (particularly in the right lower pole). Nonspecific appearance of the lower urinary bladder and adjacent upper prostate region. Findings may simply represent volume averaging of adjacent blood vessels, although possibility of cystitis not excluded. Mild prostatomegaly. Pancreas and peripancreatic space are unremarkable. Nonspecific patchy peripheral groundglass opacities in the right lower lobe. Recommend clinical correlation to exclude possibility of inflammatory/infectious pneumonitis. Recommend short-term follow-up chest CT. Right upper quadrant ultrasound 05/13/2022: 1. Pancreas completely obscured by overlying bowel gas. 2. Unremarkable liver, gallbladder and right kidney. No bile duct dilatation. 41 year old male with right upper quadrant pain, nausea, emesis. -At this follow-up, patient seems to associate his pain with fatty foods. Given his ultrasound did not show any gallstones or signs of cholecystitis, we will proceed with a HIDA scan evaluate for biliary dyskinesia. We will also repeat CMP to recheck for hyperbilirubinemia -EGD and colonoscopy discussed with patient if HIDA is negative. He elected to wait for HIDA results and see if there is still a need for scheduling after. -We will send for UA, patient will see his primary for further follow-up for renal protocol CT and short-term chest imaging/follow up on incidental findings Please Note: This office note has been created using [employer], a speech recognition software program, and may contain errors including punctuation, grammar, spelling, gender, and inappropriate words or phrases that pertain to the system. SIGNATURE: Ronny Molina MD PATIENT NAME: Pratik Ennis DATE: May 19, 2022 TIME: 11:28 AM PAGER/CONTACT #: documented in this encounter [facility] 05-13-2022 Note HNO ID: [id number] Author: Jie Holt RT(R) Service: Radiology Author Type: Technologist Type: Progress Notes Filed: 05/13/2022 9:49 AM Note Text: Radiology Service Progress Note DATE OF SERVICE: May 13, 2022 TIME: 9:48 AM PATIENT IDENTITY VERIFICATION COMPLETED USING TWO (2) STANDARD IDENTIFIERS: Name and Date of confirmed by patient verbally. FALL SCREENING: Has the patient had 2 falls in the last year or 1 fall with injury or currently using an Ambulatory Assistive Device (Walker, Cane, Wheelchair, Crutches, etc.)? No PATIENT GENDER DATA: Male PATIENT RELEVANT IMPLANT DATA REVIEWED: Not Applicable ALLERGIES: Reviewed and unchanged CONTRAST ALLERGY: NO. EXAM: CT -CONTRAST INDUCED NEPHROPATHY RISK FACTORS: Not applicable CREATININE: Creatinine Date Value Ref Range Status 04/01/2022 1.19 0.50 - 1.40 mg/dL Final Comment: Patients receiving either N-Acetylcysteine (NAC) or Metamizole prior to venipuncture, may have falsely depressed results. Estimated Glomerular Filtration Rate Date Value Ref Range Status 04/01/2022 78 >=60 mL/min/1.73m? Final Comment: Estimated Glomerular Filtration Rate (eGFR) is calculated using the 2020 CKD-EPI creatinine equation. This equation utilizes serum creatinine, sex, and age as parameters. The creatinine assay has traceable calibration to isotope dilution-mass spectrometry. Refer to KDIGO guidelines for clinical interpretation. In patients with unstable renal function, e.g. those with acute kidney injury, the eGFR may not accurately reflect actual GFR. P.O.C.T. RESULTS: POC done: Yes, See Lab Tab May 13, 2022 TREATMENT: N/A PERIPHERAL IV DATA: Ambulatory: A peripheral IV was started in the Right antecubital site with a Angio cath: 20 gauge. RADIOLOGY DEPARTMENT: CT; Exam(s) Completed: Abdomen/Pelvis SIGNATURE: RT Alpesh(R) PATIENT NAME: Pratik Ennis DATE: May 13, 2022 TIME: 9:[address] [facility] 05-13-2022 History of Present illness Narrative Radiology Service Progress Note DATE OF SERVICE: May 13, 2022 TIME: 9:48 AM PATIENT IDENTITY VERIFICATION COMPLETED USING TWO (2) STANDARD IDENTIFIERS: Name and Date of confirmed by patient verbally. FALL SCREENING: Has the patient had 2 falls in the last year or 1 fall with injury or currently using an Ambulatory Assistive Device (Walker, Cane, Wheelchair, Crutches, etc.)? No PATIENT GENDER DATA: Male PATIENT RELEVANT IMPLANT DATA REVIEWED: Not Applicable ALLERGIES: Reviewed and unchanged CONTRAST ALLERGY: NO. EXAM: CT -CONTRAST INDUCED NEPHROPATHY RISK FACTORS: Not applicable CREATININE: Creatinine Date Value Ref Range Status 04/01/2022 1.19 0.50 - 1.40 mg/dL Final Comment: Patients receiving either N-Acetylcysteine (NAC) or Metamizole prior to venipuncture, may have falsely depressed results. Estimated Glomerular Filtration Rate Date Value Ref Range Status 04/01/2022 78 >=60 mL/min/1.73m Final Comment: Estimated Glomerular Filtration Rate (eGFR) is calculated using the 2020 CKD-EPI creatinine equation. This equation utilizes serum creatinine, sex, and age as parameters. The creatinine assay has traceable calibration to isotope dilution-mass spectrometry. Refer to KDIGO guidelines for clinical interpretation. In patients with unstable renal function, e.g. those with acute kidney injury, the eGFR may not accurately reflect actual GFR. P.O.C.T. RESULTS: POC done: Yes, See Lab Tab May 13, 2022 TREATMENT: N/A PERIPHERAL IV DATA: Ambulatory: A peripheral IV was started in the Right antecubital site with a Angio cath: 20 gauge. RADIOLOGY DEPARTMENT: CT; Exam(s) Completed: Abdomen/Pelvis SIGNATURE: RT Alpesh(R) PATIENT NAME: Pratik Ennis DATE: May 13, 2022 TIME: 9:48 AM documented in this encounter [facility] 04-15-2022 History and physical note Images from the original note were not included. [facility]INIC PRIMARY CARE PHYSICIAN: Henna Saenz MD Subjective CHIEF COMPLAINT: Epigastric pain HISTORY OF PRESENT ILLNESS: Mr. Ennis is a 41 year old male who presents for bloating and abdominal pain. Patient notes that for the past 6 months he has developed bloating and nausea with alcohol intake. He states even with 2 beers, he notices extreme bloating that causes him to get nauseous and he has had emesis. This has occurred twice in the past 6 months as he has avoided drinking secondary to this. A month prior to presentation today he developed abdominal pain that appeared to be located in the epigastric and left upper quadrant region. It did not seem to be associated with food or movement. He states he had a lot of life stressors at the time. The pain resolved on its own without any intervention. Patient has a history of heartburn for which he is taking pantoprazole and states he has not had any symptoms since starting the medication several years ago. He denies any recent episodes of bloating, nausea, emesis, abdominal pain -last episode was 1 month prior. He is able to tolerate a diet. He endorses a few episodes of early satiety , however he denies any weight loss. He has no issues with spicy or fatty foods. He has no problems with swallowing liquids or solid food. He has been having regular bowel function. He denies any melena, hematochezia, hematemesis. He denies any prior EGD or colonoscopy. He denies prior abdominal surgeries. He endorses tobacco use (chew). He states he was a social drinker but has been unable to tolerate EtOH since about 6 months ago. Denies any drug use Patient was admitted to [facility] about a year ago for concern for STEMI and acute pericarditis. He underwent a cardiac cath that was documented to have no concerning findings per clinic note on 04/01/2022. Echo from 09/30/2021 showed EF of 61.7%. Patient was discharged on aspirin, Plavix, Eliquis which he completed. No past medical history on file. No past surgical history on file. FAMILY HISTORY Problem Relation Age of Onset Cancer Father Hodgkin Lymphoma Father Social History Tobacco Use Smoking status: Never Smokeless tobacco: Current Types: Chew Vaping Use Vaping Use: Never used Substance Use Topics Alcohol use: Not Currently Drug use: Never (Not in a hospital admission) No current facility-administered medications for this visit. ALLERGIES No Known Allergies COMPLETE REVIEW OF SYSTEMS: PAIN ASSESSMENT: Negative for pain, history of chronic pain, or current treatment for a chronic pain condition. GENERAL: No weight loss, malaise or fevers HEENT: Negative for frequent or significant headaches NECK: Negative for lumps, pain, and significant neck swelling RESPIRATORY: Negative for cough, hemoptysis, wheezing, COPD, dyspnea or shortness of breath CARDIOVASCULAR: Negative for chest pain, leg swelling, CHF or palpitations GI: See HPI : No history of dysuria, frequency or incontinence MUSCULOSKELETAL: Negative for joint pain or swelling, back pain or muscle pain SKIN: Negative for lesions, rash, and itching ENDOCRINE: Negative for cold or heat intolerance NEURO: No history of headaches, syncope, paralysis, seizures or tremors Objective PHYSICAL EXAM: BP 140/110 Pulse 102 Wt 312 lb (141.5kg) SpO2 93% Physical Exam Performed GENERAL: Alert, no distress, cooperative SKIN: Skin color, texture, turgor normal. No rashes or lesions. LUNGS: Lungs clear to auscultation, Good diaphragmatic excursion CARDIAC: Rhythm: regular rate and rhythm, Rate: normal ABDOMEN: Soft, nontender, nondistended, no scars, no masses EXTREMITIES: Extremities normal, no deformities, edema, clubbing or skin discoloration. Good capillary refill., No ulcers NEURO: Grossly normal cognition, motor function, and cranial nerves III-XII, Gait normal. Reflexes normal and symmetric. Sensation grossly intact PULSES: 2+ radial, 2+ carotid DATA: Diagnostic tests reviewed for today's visit: CMP, CBC, Amylase, Lipase from 04/01/2022 41 year old male referred for bloating and abdominal pain -Patient has a multitude of symptoms. He has some symptoms related to EtOH consumption and en episode a month ago that appears to be consistent with gastritis -His lab work from 04/01/2022 does reflect a mildly elevated bilirubin -Given the broad range of symptoms, we will begin with noninvasive work-up consisting of right upper quadrant ultrasound and CT of the abdomen pelvis -Patient may likely require endoscopy, will discuss further after results from imaging studies SIGNATURE: Ronny Molina MD PATIENT NAME: Pratik Ennis DATE: April 14, 2022 TIME: 9:21 AM PAGER/CONTACT #: documented in this encounter [facility] 04-02-2022 Miscellaneous Notes Patient notified Bianca Franco MA April 02, 2022 2:27 PM ----- Message from Henna Saenz MD sent at 04/02/2022 12:55 PM EDT ----- Please call and notify patient normal amylase, lipase, TSH Stable CBC Bilirubin liver pigment is 1.1 normal is 1.0 - watch Potassium 5.5 from hemolysis - observe No recommendations documented in this encounter [facility] 04-01-2022 Note HNO ID: [id number] Author: Mercedes Coyle LPN Service: ? Author Type: LICENSED NURSE Type: Progress Notes Filed: 04/01/2022 11:22 AM Note Text: Pratik presents today for c/o abdominal pain. He states his protonix is not effective anymore. He c/o early satiety and nausea. He states I feel bloated all day. He states I sometimes throw up when I'm sleeping in my mouth and it wakes me up and that sucks. He states he is having regular bowel movements daily. He states he has not seen a gastro doctor. Pratik states he only takes his carvedilol once daily. [facility] 04-01-2022 Note HNO ID: [id number] Author: Henna Saenz MD Service: ? Author Type: Physician Type: Progress Notes Filed: 04/01/2022 11:22 AM Note Text: 04/01/2022 This is a 41 year old male who presents today for: follow up For years of stomach issues . On Pantoprazole. Since December nauseated, abdominal pain and feels full with gas. Agrees to BID dosage. He admits that drinking ETOH makes it worse but immediate got sick. No history of endoscope. Recent clean cardiac cath and negative echo about 6 months ago. He can eat regular foods but ETOH again has made this worse. No past medical history on file. No past surgical history on file. Current Outpatient Medications Medication Sig carvedilol (COREG) 3.125 mg tablet 3.125 mg. citalopram (CELEXA) 20 mg tablet Take 20 mg by mouth once daily. pantoprazole DR (PROTONIX) 40 mg tablet 1 twice a day ondansetron (ZOFRAN) 4 mg tablet Take 1 tablet by mouth every 8 hours as needed for nausea/vomiting. No current facility-administered medications for this visit. Social History Tobacco Use Smoking status: Never Smokeless tobacco: Current Types: Chew Vaping Use Vaping Use: Never used Substance Use Topics Alcohol use: Not Currently Drug use: Never REVIEW OF SYSTEMS: Review of Systems Constitutional: Negative for fatigue and fever. HENT: Negative for sore throat and trouble swallowing. Respiratory: Negative for shortness of breath. Cardiovascular: Negative for chest pain. Gastrointestinal: Positive for abdominal pain. PHYSICAL EXAM: BP 139/93 Pulse 91 Temp (Src) 97.3 (Temporal) Resp 20 Wt 305 lb (138.3kg) SpO2 97% Physical Exam Vitals reviewed. Constitutional: General: He is not in acute distress. Appearance: Normal appearance. He is obese. He is not ill-appearing, toxic-appearing or diaphoretic. HENT: Head: Normocephalic. Right Ear: Tympanic membrane, ear canal and external ear normal. Left Ear: Tympanic membrane, ear canal and external ear normal. Nose: No congestion. Mouth/Throat: Mouth: Mucous membranes are moist. Pharynx: Oropharynx is clear. Eyes: Extraocular Movements: Extraocular movements intact. Conjunctiva/sclera: Conjunctivae normal. Pupils: Pupils are equal, round, and reactive to light. Neck: Vascular: No carotid bruit. Cardiovascular: Rate and Rhythm: Normal rate and regular rhythm. Pulses: Normal pulses. Heart sounds: Normal heart sounds. No murmur heard. Pulmonary: Effort: No respiratory distress. Breath sounds: No wheezing. Abdominal: General: Abdomen is flat. Palpations: Abdomen is soft. There is no mass. Comments: Mild epigastric pain on palpation Musculoskeletal: General: No tenderness or deformity. Right lower leg: No edema. Left lower leg: No edema. Lymphadenopathy: Cervical: No cervical adenopathy. Skin: Findings: No rash. Neurological: General: No focal deficit present. Mental Status: He is alert. Psychiatric: Mood and Affect: Mood normal. ASSESSMENT/PLAN: Encounter Diagnosis ICD-10-CM 1. Epigastric pain R10.13 CBC + DIFF COMP METABOLIC PANEL TSH BLD AMYLASE BLD LIPASE BLD CONSULT TO GENERAL SURGERY Zofran. Await labs. Consult Gen Surgery for endoscope Henna Saenz MD [facility] 04-01-2022 History of Present illness Narrative Pratik presents today for c/o abdominal pain. He states his protonix is not effective anymore. He c/o early satiety and nausea. He states I feel bloated all day. He states I sometimes throw up when I'm sleeping in my mouth and it wakes me up and that sucks. He states he is having regular bowel movements daily. He states he has not seen a gastro doctor. Pratik states he only takes his carvedilol once daily. 04/01/2022 This is a 41 year old male who presents today for: follow up For years of stomach issues . On Pantoprazole. Since December nauseated, abdominal pain and feels full with gas. Agrees to BID dosage. He admits that drinking ETOH makes it worse but immediate got sick. No history of endoscope. Recent clean cardiac cath and negative echo about 6 months ago. He can eat regular foods but ETOH again has made this worse. No past medical history on file. No past surgical history on file. Current Outpatient Medications Medication Sig carvedilol (COREG) 3.125 mg tablet 3.125 mg. citalopram (CELEXA) 20 mg tablet Take 20 mg by mouth once daily. pantoprazole DR (PROTONIX) 40 mg tablet 1 twice a day ondansetron (ZOFRAN) 4 mg tablet Take 1 tablet by mouth every 8 hours as needed for nausea/vomiting. No current facility-administered medications for this visit. Social History Tobacco Use Smoking status: Never Smokeless tobacco: Current Types: Chew Vaping Use Vaping Use: Never used Substance Use Topics Alcohol use: Not Currently Drug use: Never REVIEW OF SYSTEMS: Review of Systems Constitutional: Negative for fatigue and fever. HENT: Negative for sore throat and trouble swallowing. Respiratory: Negative for shortness of breath. Cardiovascular: Negative for chest pain. Gastrointestinal: Positive for abdominal pain. PHYSICAL EXAM: BP 139/93 Pulse 91 Temp (Src) 97.3 (Temporal) Resp 20 Wt 305 lb (138.3kg) SpO2 97% Physical Exam Vitals reviewed. Constitutional: General: He is not in acute distress. Appearance: Normal appearance. He is obese. He is not ill-appearing, toxic-appearing or diaphoretic. HENT: Head: Normocephalic. Right Ear: Tympanic membrane, ear canal and external ear normal. Left Ear: Tympanic membrane, ear canal and external ear normal. Nose: No congestion. Mouth/Throat: Mouth: Mucous membranes are moist. Pharynx: Oropharynx is clear. Eyes: Extraocular Movements: Extraocular movements intact. Conjunctiva/sclera: Conjunctivae normal. Pupils: Pupils are equal, round, and reactive to light. Neck: Vascular: No carotid bruit. Cardiovascular: Rate and Rhythm: Normal rate and regular rhythm. Pulses: Normal pulses. Heart sounds: Normal heart sounds. No murmur heard. Pulmonary: Effort: No respiratory distress. Breath sounds: No wheezing. Abdominal: General: Abdomen is flat. Palpations: Abdomen is soft. There is no mass. Comments: Mild epigastric pain on palpation Musculoskeletal: General: No tenderness or deformity. Right lower leg: No edema. Left lower leg: No edema. Lymphadenopathy: Cervical: No cervical adenopathy. Skin: Findings: No rash. Neurological: General: No focal deficit present. Mental Status: He is alert. Psychiatric: Mood and Affect: Mood normal. ASSESSMENT/PLAN: Encounter Diagnosis ICD-10-CM 1. Epigastric pain R10.13 CBC + DIFF COMP METABOLIC PANEL TSH BLD AMYLASE BLD LIPASE BLD CONSULT TO GENERAL SURGERY Serene. Await labs. Consult Gen Surgery for endoscope Henna Saenz MD documented in this encounter [facility] 04-06-2021 Hospital Discharge instructions Patient Education 04/06/2021 13:46:31 Pericarditis Pericarditis Pericarditis is inflammation of the pericardium. The pericardium is a thin, double-layered, fluid-filled sac that surrounds your heart. The pericardium protects and holds your heart in your chest cavity. Inflammation of your pericardium can cause rubbing (friction) between the two layers when your heart beats. Fluid may also build up between the layers of the sac (pericardial effusion). There are three types of this condition: Acute pericarditis. Inflammation develops suddenly and causes pericardial effusion. Chronic pericarditis. Inflammation may develop slowly, or it may continue after acute pericarditis and last longer than 6 months. Constrictive pericarditis (rare). The layers of the pericardium stiffen and develop scar tissue. The scar tissue thickens and sticks together. This makes it difficult for the heart to work in a normal way. In most cases, pericarditis is acute and not serious. Chronic pericarditis and constrictive pericarditis are more serious and may require treatment. What are the causes? In most cases, the cause of this condition is not known. If a cause is found, it may be: An infection from a virus. A heart attack (myocardial infarction). Problems after open-heart surgery. Chest injury. Autoimmune disorder. The body's defense system (immune system) attacks healthy tissues. Examples include lupus or rheumatoid arthritis. Kidney failure. Underactive thyroid gland (hypothyroidism). Cancer that has spread (metastasized) to the pericardium from another part of the body. Treatment using high-energy X-rays (radiation). Certain medicines, including some seizure medicines, blood thinners, heart medicines, and antibiotics. Infection from a fungus or bacteria (rare). What increases the risk? The following factors may make you more likely to develop this condition: Being male. Being 20 50 years old. Having had pericarditis before. Having had a recent upper respiratory tract infection. What are the signs or symptoms? The main symptom of this condition is chest pain. The chest pain may: Be in the center or the left side of your chest. Not go away with rest. Last for many hours or days. Worsen when you lie down and get better when you sit up and lean forward. Worsen when you swallow. Move to your back, neck, or shoulder. Other symptoms may include: A chronic, dry cough. Heart palpitations. These may feel like rapid, fluttering, or pounding heartbeats. Dizziness or fainting. Tiredness or fatigue. Fever. Rapid breathing. Shortness of breath when lying down. How is this diagnosed? This condition is diagnosed based on medical history, physical exam, and diagnostic tests. During your physical exam, your health care provider will listen for friction while your heart beats (pericardial rub). You may also have tests, including: Blood tests to look for signs of infection and inflammation. Electrocardiogram (ECG). This test measures the electrical activity in your heart. Echocardiogram. This uses sound waves to make images of your heart. CT scan. MRI. Culture of pericardial fluid. Removing a tissue sample of the pericardium to look at under a microscope (biopsy). If tests show that you may have constrictive pericarditis, a small, thin tube may be inserted into your heart to confirm the diagnosis (cardiac catheterization). How is this treated? Treatment for this condition depends on the cause and type of pericarditis that you have. In most cases, acute pericarditis will clear up on its own. Treatment may include: Limiting physical activity. Medicines, such as: ?NSAIDs to relieve pain and inflammation. ?Steroids to reduce inflammation. ?Colchicine to relieve pain and inflammation. A procedure to remove fluid using a needle (pericardiocentesis) if fluid buildup puts pressure on the heart. Surgery to remove part of the pericardium if constrictive pericarditis develops. If another condition is causing your pericarditis, you may also need treatment for that condition. Follow these instructions at home: Limit your activity as told by your health care provider until your symptoms improve. This usually includes: ?Resting or sitting for most of the day. ?No long walks. ?No exercise. ?No sports. Athletes may need to limit competition for several months. Do not use any products that contain nicotine or tobacco, such as cigarettes and e-cigarettes. If you need help quitting, ask your health care provider. Eat a heart-healthy diet. Ask your dietitian what foods are healthy for your heart. Take [id number] and prescription medicines only as told by your health care provider. ?If you were prescribed an antibiotic medicine, take it as told by your health care provider. Do not stop taking the antibiotic even if you start to feel better. Keep all follow-up visits as told by your health care provider. This is important. Contact a health care provider if: You continue to have symptoms of pericarditis. You develop new symptoms of pericarditis. Your symptoms get worse. You have a fever. Get help right away if: You have worsening chest pain. You have difficulty breathing. You pass out. These symptoms may represent a serious problem that is an emergency. Do not wait to see if the symptoms will go away. Get medical help right away. Call your local emergency services (911 in the [place] Do not drive yourself to the hospital. Summary Pericarditis is inflammation of the pericardium. The pericardium is a thin, double-layered, fluid-filled sac that surrounds your heart. The main symptom of this condition is chest pain. Treatment for this condition depends on the cause and type of pericarditis that you have. This information is not intended to replace advice given to you by your health care provider. Make sure you discuss any questions you have with your health care provider. Document Released: 11/25/2001 Document Revised: 07/08/2018 Document Reviewed: 07/08/2018 [employer] Patient Education 2020 [employer]. Follow Up Care 04/05/2021 04:51:48 With:Prescription Assistance Address:Unknown When: Unknown Comments:Prescription assistance has been arranged for you and is available for non-narcotic medications ordered by your doctor. To access, bring your prescriptions to the [facility] located in the [facility] on the main floor of the [facility] .Pharmacy hours are: Thursday-Thursday 6a-630p, Thursday 8a-2p, Thursday-closed. With:Cardiac Rehab Address: [facility]IRD FLOOR- [address] [address]- When: Unknown Comments:The Cardiac Rehab department will call you in 1-2 weeks to schedule you for phase 2. We left you a brochure with information about cardiac rehab. If you have any questions please call [phone]. With:HERMELINDO PRITCHARD Address:Unknown When:1-2 days [facility] 1. STEMI - ST elevation myoc ardial infarction Proceed with left heart catheterization, urgent Consent was obtained Start on aspirin, high intensity statin, ACEI and or beta-franny if BP/renal function will tolerate - currently there are no lab results (pending) Check ECHO, A1c, lipid panel, TSH, complete metabolic panel, BNP, lactic acid and repeat. Also check magnesium, daily CBC/BMP. Repeat EKG post cath and in morning Further recommendations pending outcome of LHC/intervention needed STAT EKG with any chest pain post LHC, monitor for signs of bleeding Will need cardiac rehab, smoking cessation (if applicable) and lifestyle modification counseling I have reviewed all available EKGs, echocardiograms, stress test and cardiac catheterizations. Relevant laboratory data have also been reviewed. This note was transcribed via voice recognition software. Please forgive any errors or typos, resulting from the use of this technology. Dr. Blanca Coker Interventional Subsystems Engineer, PGY 7 Pager: [phone] Please call with any questions or concerns Attending for this patient encounter is Dr. Celis [facility] 06-20-2021 History of Present illness Narrative* Son Janina MD Francheska - 12/02/2020 5:51 PM EDT DATE OF SERVICE: 11/30/2020 HISTORY OF PRESENT ILLNESS: Mr. Ennis is a 40-year-old male who presented to [facility] this afternoon with the complaint of upper abdominal pain. The symptoms started on and off 6 months ago and the patient is currently taking Protonix 40 mg one every day. In the last couple of days, the patient's symptoms got worse and today he vomited x2 and the pain is severe. Patient is concerned and comes in for further evaluation and treatment. Patient denied any change in bowel movement, denied any blood in the vomitus, denied any back pain. Patient's primary care physician is Dr. Britton. MEDICATIONS: Pantoprazole 40 mg one a day. ALLERGIES: No known drug allergies. SOCIAL HISTORY: Patient is a nonsmoker; however, chews tobacco. Occasional alcohol drinker. FAMILY HISTORY: Noncontributory. REVIEW OF SYSTEMS: Per HPI. PHYSICAL EXAMINATION: Vital signs: Temperature 98.6, respiratory rate 18, pulse 90, blood pressure 154/100, pulse oximetry 99%. Pain level 8 to 9/10. Patient's weight 285 pounds. Patient is a 40-year-old male who appears uncomfortable but not in acute distress. HEENT: Unremarkable. Neck: Supple. Full range of motion. Lungs: Clear to auscultation bilaterally. Heart: Regular rate and rhythm. Normal heart sounds. Abdomen: Soft, tender with palpation on the epigastrium in the left upper quadrant area. Positive for guarding. Unable to assess for rebound tenderness. Extremities: No edema appreciated. IMPRESSION: Severe left upper quadrant abdominal pain. PLAN: Discussed the findings with patient. Due to patient is on Protonix 40 mg 1 a day and the pain is getting worse now, and due to concern will referred the patient to the ER for further evaluation and treatment. Patient chose to go to [facility] in [place] and patient went to the ER in private car. Cali Pritchard MD [id number] [facility] File#: [id number] END OF DOCUMENT / CHANGE LOG FOLLOWS Last Edited By [employer]. Signed By Cali Pritchard MD #JOSEPH Cali Pritchard MD #JOSEPH on 12/08/2020 09:35 ET on 12/08/2020 09:35 ET Revision Number - 2 ^^^ Verified/Reviewed by 12/08/2035 [facility] PATIENT NAME: PRATKI ENNIS [address] [facility] [address] [place] MEDICAL REC #: [id number] [place] [address] [place] [facility] Diagnosis Epigastric pain- Primary Abdominal pain, epigastric documented in this encounter [facility] note* Diagnosis Epigastric pain Abdominal pain, epigastric documented in this encounter [facility] note* Diagnosis Epigastric pain Abdominal pain, epigastric documented in this encounter [facility] note* Diagnosis Epigastric pain Abdominal pain, epigastric documented in this encounter [facility] note* Diagnosis Right upper quadrant pain- Primary Abdominal pain, right upper quadrant Urinary tract infection without hematuria, site unspecified Elevated bilirubin Jaundice, unspecified, not of documented in this encounter [facility] note* Diagnosis Elevated bilirubin Jaundice, unspecified, not of Right upper quadrant pain Abdominal pain, right upper quadrant documented in this encounter [facility] note* Diagnosis Epigastric pain- Primary Abdominal pain, epigastric Right upper quadrant pain Abdominal pain, right upper quadrant Right upper quadrant pain Abdominal pain, right upper quadrant documented in this encounter [facility] note* Diagnosis Epigastric pain Abdominal pain, epigastric Right upper quadrant pain Abdominal pain, right upper quadrant Right upper quadrant pain Abdominal pain, right upper quadrant documented in this encounter [facility] note* Diagnosis S/P cholecystectomy- Primary Other acquired absence of organ documented in this encounter [facility] course Narrative No data available for this section [facility] Reason for referral (narrative)* Diagnostic Procedure Only (Routine) - Closed Specialty Diagnoses / Procedures Referred By Jamal elliott Referred To Contact US IMAGING Diagnoses Epigastric pain Procedures US ABD RT UPPER QUADRANT US ABDOMINAL REAL TIME W/IMAGE LIMITED Ronny Molina MD [address] [place] [address] Us Imaging Referral ID Status Reason Start Date Expiration Date V isits Requested Visits Authorized [id number] Closed Auto-Generate d Referral 05/15/2022 05/15/2023 [address] [facility] for referral (narrative)* Diagnostic Procedure Only (Routine) - Authorized Specialty Diagnoses / Procedures Referred By Contac t Referred To Contact MOLECULAR & FUNCTIONAL IMAGING Diagnoses Elevated bilirubin Right upper quadrant pain Procedures NM HEPATOBILIARY W EF AND/OR RX HEPATOBIL SYST IMAG INC GB W/PHARMA Ronny Red MD [address] [place] [address] Molecular & Functional Imaging [address] [place] [address] Referral ID Status Reason Start Date Expiration Date Visits Requested Visits Authorized [id number] Authorized Auto-Generat ed Referral 06/19/2023 1 1 [facility] for referral (narrative)* Diagnostic Procedure Only (Routine) - Closed Specialty Diagnoses / Procedures Referred By Contac t Referred To Contact MOLECULAR & FUNCTIONAL IMAGING Diagnoses Elevated bilirubin Right upper quadrant pain Procedures NM HEPATOBILIARY W EF AND/OR RX HEPATOBIL SYST IMAG INC GB W/PHARMA Ronny Red MD [address] [place] [address] Molecular & Functional Imaging [address] [place] [address] Referral ID Status Reason Start Date Expiration Date V isits Requested Visits Authorized [id number] Closed Auto-Generate d Referral 06/03/2022 06/19/2023 1 1 [facility] for referral (narrative)* Diagnostic Procedure Only (Urgent) - Closed Specialty Diagnoses / Procedures Referred By Contac t Referred To Contact US IMAGING Diagnoses Epigastric pain Right upper quadrant pain Procedures US ABD RIGHT UPPER QUADRANT US ABDOMINAL REAL TIME W/IMAGE LIMITED Ronny Molina MD [address] [place] [address] Us Imaging Referral ID Status Reason Start Date Expiration Date V isits Requested Visits Authorized [id number] Closed Auto-Generate d Referral 10/13/2022 11/12/2023 1 1 * MRI/CT (Urgent) - Closed Specialty Diagnoses / Procedures Referred By Contac t Referred To Contact CT IMAGING Diagnoses Epigastric pain Right upper quadrant pain Procedures CT ABD/PEL W IVCON CT ABD & PELVIS W/CONTRAST Ronny Molina MD [address] [place] [address] Ct Imaging Referral ID Status Reason Start Date Expiration Date V isits Requested Visits Authorized [id number] Closed Auto-Generate d Referral 10/13/2022 11/12/2023 1 1 [facility] for referral (narrative)* Diagnostic Procedure Only (Urgent) - Closed Specialty Diagnoses / Procedures Referred By Jamal t Referred To Contact US IMAGING Diagnoses Epigastric pain Right upper quadrant pain Procedures US ABD RIGHT UPPER QUADRANT US ABDOMINAL REAL TIME W/IMAGE LIMITED Ronny Molina MD [address] [place] [address] Us Imaging Referral ID Status Reason Start Date Expiration Date V isits Requested Visits Authorized [id number] Closed Auto-Generate d Referral 10/13/2022 11/12/2023 1 1 [facility] for visit Narrative* Diagnostic Procedure Only (Routine) - Closed Specialty Diagnoses / Procedures Referred By Jamal t Referred To Contact US IMAGING Diagnoses Epigastric pain Procedures US ABD RT UPPER QUADRANT US ABDOMINAL REAL TIME W/IMAGE LIMITED Ronny Molina MD [address] [place] [address] Us Imaging Referral ID Status Reason Start Date Expiration Date V isits Requested Visits Authorized [id number] Closed Auto-Generate d Referral 05/15/2022 05/15/2023 1 1 [facility] for visit Narrative* Diagnostic Procedure Only (Routine) - Closed Specialty Diagnoses / Procedures Referred By Contac t Referred To Contact MOLECULAR & FUNCTIONAL IMAGING Diagnoses Elevated bilirubin Right upper quadrant pain Procedures NM HEPATOBILIARY W EF AND/OR RX HEPATOBIL SYST IMAG INC GB W/PHARMA INTERVENJ Ronny Molina MD [address] [place] [address] Molecular & Functional Imaging [address] [place] [address] Referral ID Status Reason Start Date Expiration Date V isits Requested Visits Authorized [id number] Closed Auto-Generate d Referral 06/03/2022 06/19/2023 [facility] Procedure Only (Urgent) - Closed Specialty Diagnoses / Procedures Referred By Jamal t Referred To Contact US IMAGING Diagnoses Epigastric pain Right upper quadrant pain Procedures US ABD RIGHT UPPER QUADRANT US ABDOMINAL REAL TIME W/IMAGE LIMITED Ronny Molina MD [address] [place] [address] Us Imaging Referral ID Status Reason Start Date Expiration Date V isits Requested Visits Authorized [id number] Closed Auto-Generate d Referral 10/13/2022 11/12/2023 1 1 [facility] Summary Purpose Family History No Family History Records FoundNo Family History Records FoundNo Family History Records Found Advance Directives No Advanced Directives Records FoundNo Advanced Directives Records FoundNo Advanced Directives Records Found Reason for Referral Specialty Diagnoses / Procedures Referred By Jamal t Referred To Contact CT IMAGING Diagnoses Epigastric pain Right upper quadrant pain Procedures CT ABD/PEL W IVCON CT ABD & PELVIS W/CONTRAST Ronny Molina MD [address] [place] [address] Ct Imaging Referral ID Status Reason Start Date Expiration Date V isits Requested Visits Authorized [id number] Closed Auto-Generate d Referral 10/13/2022 11/12/2023 1 1 Specialty Diagnoses / Procedures Referred By Contsaravanan t Referred To Contact Henna Saenz MD [address] [place] [address] Referral ID Status Reason Start Date Expiration Date V isits Requested Visits Authorized [id number] Pending Review 1 1 Specialty Diagnoses / Procedures Referred By Contac t Referred To Contact CT IMAGING Diagnoses Epigastric pain Procedures CT ABD/PEL W IVCON CT ABD & PELVIS W/CONTRAST Ronny Molina MD [address] [place] [address] Ct Imaging Referral ID Status Reason Start Date Expiration Date Visits Requested Visits Authorized [id number] Authorized Auto-Generat ed Referral 05/15/2022 05/15/2023 1 1 Specialty Diagnoses / Procedures Referred By Contac t Referred To Contact US IMAGING Diagnoses Epigastric pain Procedures US ABD RT UPPER QUADRANT US ABDOMINAL REAL TIME W/IMAGE LIMITED Ronny Molina MD [address] [place] [address] Us Imaging Referral ID Status Reason Start Date Expiration Date Visits Requested Visits Authorized [id number] Authorized Auto-Generat ed Referral 05/15/2022 05/15/2023 1 1 Specialty Diagnoses / Procedures Referred By Contac t Referred To Contact General Surgery Diagnoses Epigastric pain Procedures CONSULT TO GENERAL SURGERY OFFICE/OUTPATIENT [facility] 60-74 MINUTES Henna Saenz MD [address] [place] [address] Referral ID Status Reason Start Date Expiration Date Visits Requested Visits Authorized [id number] Authorized PCP Requested Referral 2 04/01/2023 1 1 Additional Source Comments (unrecognized sect ion and content) No Status Records FoundNo Status Records FoundNo Status Records Found INFORMATION SOURCE (unrecogn ized section and content) DATE CREATED AUTHOR AUTHOR'S ORGANIZ ATION 11/30/2021 [facility] [place] DATE CREATED AUTHOR AUTHOR'S ORGANIZ ATION 10/08/2022 [facility] ntjim Source Comments (unrecognize d section and content) In the event this informatio n is protected by the Federal Confidentiality of Alcohol and Drug Abuse Patient Records regulations: The Federal rules restrict any use of the information to criminally investigate or prosecute any alcohol or drug abuse patient.[facility] the event this information is protected by the Federal Confidentiality of Alcohol and Drug Abuse Patient Records regulations: The Federal rules restrict any use of the information to criminally investigate or prosecute any alcohol or drug abuse patient.[facility] the event this information is protected by the Federal Confidentiality of Alcohol and Drug Abuse Patient Records regulations: The Federal rules restrict any use of the information to criminally investigate or prosecute any alcohol or drug abuse patient.[facility] the event this information is protected by the Federal Confidentiality of Alcohol and Drug Abuse Patient Records regulations: The Federal rules restrict any use of the information to criminally investigate or prosecute any alcohol or drug abuse patient.[facility] the event this information is protected by the Federal Confidentiality of Alcohol and Drug Abuse Patient Records regulations: The Federal rules restrict any use of the information to criminally investigate or prosecute any alcohol or drug abuse patient.[facility] the event this information is protected by the Federal Confidentiality of Alcohol and Drug Abuse Patient Records regulations: The Federal rules restrict any use of the information to criminally investigate or prosecute any alcohol or drug abuse patient.[facility] the event this information is protected by the Federal Confidentiality of Alcohol and Drug Abuse Patient Records regulations: The Federal rules restrict any use of the information to criminally investigate or prosecute any alcohol or drug abuse patient.[facility] the event this information is protected by the Federal Confidentiality of Alcohol and Drug Abuse Patient Records regulations: The Federal rules restrict any use of the information to criminally investigate or prosecute any alcohol or drug abuse patient.[facility] the event this information is protected by the Federal Confidentiality of Alcohol and Drug Abuse Patient Records regulations: The Federal rules restrict any use of the information to criminally investigate or prosecute any alcohol or drug abuse patient.[facility] the event this information is protected by the Federal Confidentiality of Alcohol and Drug Abuse Patient Records regulations: The Federal rules restrict any use of the information to criminally investigate or prosecute any alcohol or drug abuse patient.[facility] the event this information is protected by the Federal Confidentiality of Alcohol and Drug Abuse Patient Records regulations: The Federal rules restrict any use of the information to criminally investigate or prosecute any alcohol or drug abuse patient.[facility] the event this information is protected by the Federal Confidentiality of Alcohol and Drug Abuse Patient Records regulations: The Federal rules restrict any use of the information to criminally investigate or prosecute any alcohol or drug abuse patient.[facility] the event this information is protected by the Federal Confidentiality of Alcohol and Drug Abuse Patient Records regulations: The Federal rules restrict any use of the information to criminally investigate or prosecute any alcohol or drug abuse patient.[facility] the event this information is protected by the Federal Confidentiality of Alcohol and Drug Abuse Patient Records regulations: The Federal rules restrict any use of the information to criminally investigate or prosecute any alcohol or drug abuse patient.[facility] the event this information is protected by the Federal Confidentiality of Alcohol and Drug Abuse Patient Records regulations: The Federal rules restrict any use of the information to criminally investigate or prosecute any alcohol or drug abuse patient.[facility]ble[facility] the event this information is protected by the Federal Confidentiality of Alcohol and Drug Abuse Patient Records regulations: The Federal rules restrict any use of the information to criminally investigate or prosecute any alcohol or drug abuse patient.[facility] the event this information is protected by the Federal Confidentiality of Alcohol and Drug Abuse Patient Records regulations: The Federal rules restrict any use of the information to criminally investigate or prosecute any alcohol or drug abuse patient.[facility] the event this information is protected by the Federal Confidentiality of Alcohol and Drug Abuse Patient Records regulations: The Federal rules restrict any use of the information to criminally investigate or prosecute any alcohol or drug abuse patient.[facility] the event this information is protected by the Federal Confidentiality of Alcohol and Drug Abuse Patient Records regulations: The Federal rules restrict any use of the information to criminally investigate or prosecute any alcohol or drug abuse patient.[facility] the event this information is protected by the Federal Confidentiality of Alcohol and Drug Abuse Patient Records regulations: The Federal rules restrict any use of the information to criminally investigate or prosecute any alcohol or drug abuse patient.[facility] the event this information is protected by the Federal Confidentiality of Alcohol and Drug Abuse Patient Records regulations: The Federal rules restrict any use of the information to criminally investigate or prosecute any alcohol or drug abuse patient.[facility] Care Teams (unrecognized sec tion and content) Production Recorder Relationship Specialty Start Date End Date Henna Saenz MD [address] [place] [address] PCP - General Family Medicine 11/28/21 Production Recorder Relationship Specialty Start Date End Date Henna Saenz MD [address] [place] [address] PCP - General Family Medicine 11/28/21 Production Recorder Relationship Specialty Start Date End Date Henna Saenz MD PCP - General Family Medicine 11/28/21 Production Recorder Relationship Specialty Start Date End Date Henna Saenz MD PCP - General Family Medicine 11/28/21 Production Recorder Relationship Specialty Start Date End Date Henna Saenz MD PCP - General Family Medicine 11/28/21 Production Recorder Relationship Specialty Start Date End Date Henna Saenz MD PCP - General Family Medicine 11/28/21 Production Recorder Relationship Specialty Start Date End Date Henna Saenz MD PCP - General Family Medicine 11/28/21 Production Recorder Relationship Specialty Start Date End Date Henna Saenz MD PCP - General Family Medicine 11/28/21 Production Recorder Relationship Specialty Start Date End Date Henna Saenz MD PCP - General Family Medicine 11/28/21 Production Recorder Relationship Specialty Start Date End Date Henna Saenz MD PCP - General Family Medicine 11/28/21 Production Recorder Relationship Specialty Start Date End Date Henna Saenz MD PCP - General Family Medicine 11/28/21 Production Recorder Relationship Specialty Start Date End Date Henna Saenz MD PCP - General Family Medicine 11/28/21 Production Recorder Relationship Specialty Start Date End Date Henna Saenz MD PCP - General Family Medicine 11/28/21 Production Recorder Relationship Specialty Start Date End Date Henna Saenz MD PCP - General Family Medicine 11/28/21 Reason for Visit (unrecogniz ed section and content) Reason Comments Results Reason Comments Consult Stomach pain Specialty Diagnoses / Procedures Referred By Jamal elliott Referred To Contact General Surgery Diagnoses Epigastric pain Procedures CONSULT TO GENERAL SURGERY OFFICE/OUTPATIENT [facility] 60-74 MINUTES Henna Saenz MD [address] [place] [address] Referral ID Status Reason Start Date Expiration Date V isits Requested Visits Authorized [id number] Closed PCP Requested Referral 04/01/2022 04/01/2023 1 1 Specialty Diagnoses / Procedures Referred By Contac t Referred To Contact CT IMAGING Diagnoses Epigastric pain Procedures CT ABD/PEL W IVCON CT ABD & PELVIS W/CONTRAST Ronny Molina MD [address] [place] [address] Ct Imaging Referral ID Status Reason Start Date Expiration Date V isits Requested Visits Authorized [id number] Closed Auto-Generate d Referral 05/15/2022 05/15/2023 1 1 Reason Comments Follow Up Here to discuss imag ing. Reason Onset Date Comments Refill Request 06/02/2022 Reason Comments APPROVED, Pantoprazole Reason Comments Radiology NM Reason Comments Established Patient Review test results/ increase abd pain Specialty Diagnoses / Procedures Referred By Contac t Referred To Contact CT IMAGING Diagnoses Epigastric pain Right upper quadrant pain Procedures CT ABD/PEL W IVCON CT ABD & PELVIS W/CONTRAST Ronny Molina MD [address] [place] [address] Ct Imaging Referral ID Status Reason Start Date Expiration Date V isits Requested Visits Authorized [id number] Closed Auto-Generate d Referral 10/13/2022 11/12/2023 1 1 Reason Comments Post Op Reason Comments Refill Request FOR RECORDS PERTAINING TO PATIENTS WHO ARE OR HAVE BEEN ENROLLED IN A CHEMICAL DEPENDENCY/SUBSTANCEABUSE PROGRAM, SOME INFORMATION MAY BE OMITTED. This clinical summary was aggregated from multiple sources. Caution should be exercised in using it in the provision of clinical care. This summary normalizes information from multiple sources, and as a consequence, information in this document may materially change the coding, format and clinical context of patient data. In addition, data may be omitted in some cases. CLINICAL DECISIONS SHOULD BE BASED ON THE PRIMARY CLINICAL RECORDS. [email or web address] provides no warranty or guarantee of the accuracy or completeness of information in this document.
--- OUTSIDE RECORDS SUMMARY | 2023-06-10 21:24 | XMS RPT_ITS | CCD ---
Author Name Unknown Address [address] [facility] [address] [place] [address] Organization [facility] Care Team Providers Care Chronometer Tester Name Role Phone FRANCHESKA MARTÍNEZ, HERMELINDO Roa Primary Care Physician [phone] Unavailable Primary Care Provider Leonel Saenz MD, Henna Scruggs Primary Care Provider Letty MARTÍNEZ, Henna Scruggs Primary Care Provider Letty MARTÍNEZ, Henna Scruggs Primary Care Provider Henna Saenz MD Primary Care Provider HENNA SAENZ Attending Unavailabl e HENNA SAENZ Referring Unavailabl e HENNA SAENZ Primary Care Unavailabl e FATCHIKOVA, RONNY (RES) Attending HENNA Harmon Primary Care Unavailabl e FATCHIKOVA, RONNY (RES) Referring UnavaHENNA Henning Primary Care Unavailabl e FATCHIKOVA, RONNY (RES) [...] BID, # 10 tab(s), 0 Refill(s), Pharmacy: [facility], 188, cm, 04/05/21 6:51:00 EDT, Height, kg, 04/05/21 6:51:00 EDT, Dosing Weight Start Date: 04/06/21 Stop Date: 04/11/21 Status: Ordered colchicine 0.6 mg oral tablet (1 source) Start: 04-06-2021 End: 11-02-2021 colchicine 0.6 mg oral tablet Dose : 0.6 mg = 1 tab(s), Oral, BID, # 60 tab(s), 6 Refill(s), Pharmacy: [facility], 188, cm, 04/05/21 6:51:00 EDT, Height, [...] 122.47 kg Ronny Molina MD Work Phone: [facility] 10-27-2022 10:20-0400 Diastolic blood pressure 92 mm[Hg] Ronny Molina MD Work Phone: [facility] 10-27-2022 10:20-0400 Heart rate 83 /min Ronny Molina MD Work Phone: [facility] 10-27-2022 10:20-0400 SaO2% (BldA) [Mass fraction] 97 % Ronny Molina MD Work Phone: [facility] 10-27-2022 10:20-0400 Systolic blood pressure 140 mm[Hg] Ronny Molina MD Work Phone: [facility] 10-13-2022 10:36-0400 Body weight 125.1 kg Ronny Molina MD Work Phone: [facility] 10-13-2022 10:36-0400 Diastolic blood pressure 64 mm[Hg] Ronny Molina MD Work Phone: [facility] 10-13-2022 10:36-0400 Heart rate 110 /min Ronny Molina MD Work Phone: [facility] 10-13-2022 10:36-0400 SaO2% (BldA) [Mass fraction] 98 % Ronny Molina MD Work Phone: [facility] 10-13-2022 10:36-0400 Systolic blood pressure 128 mm[Hg] Ronny Molina MD Work Phone: [facility] 05-20-2022 14:21-0500 Body weight 140.62 kg Ronny Molina MD Work Phone: [facility] 05-20-2022 14:21-0500 Diastolic blood pressure 80 mm[Hg] Ronny Molina MD Work Phone: [facility] 05-20-2022 14:21-0500 Heart rate 96 /min Ronny Molina MD Work Phone: [facility] 05-20-2022 14:21-0500 SaO2% (BldA) [Mass fraction] 99 % Ronny Molina MD Work Phone: [facility] 05-20-2022 14:21-0500 Systolic blood pressure 144 mm[Hg] Ronny Molina MD Work Phone: [facility] 04-15-2022 14:34-0400 Body weight 141.52 kg Ronny Molina MD Work Phone: [facility] 04-15-2022 14:34-0400 Diastolic blood pressure 110 mm[Hg] Ronny Molina MD Work Phone: [facility] 04-15-2022 14:34-0400 Heart rate 102 /min Ronny Molina MD Work Phone: [facility] 04-15-2022 14:34-0400 SaO2% (BldA) [Mass fraction] 93 % Ronny Molina MD Work Phone: [facility] 04-15-2022 14:34-0400 Systolic blood pressure 140 mm[Hg] Ronny Molina MD Work Phone: [facility] 04-01-2022 09:58-0400 Diastolic blood pressure 93 mm[Hg] Henna Saenz MD Work Phone: [facility] 04-01-2022 09:58-0400 Systolic blood pressure 139 mm[Hg] Henna Saenz MD Work Phone: [facility] 04-01-2022 09:57-0400 Body temperature 97.3 [degF] Henna Saenz MD Work Phone: [facility] 04-01-2022 09:57-0400 Body weight 138.35 kg Henna Saenz MD Work Phone: [facility] 04-01-2022 09:57-0400 Heart rate 91 /min Henna Saenz MD Work Phone: [facility] 04-01-2022 09:57-0400 Respiratory rate 20 /min Henna Saenz MD Work Phone: [facility] 04-01-2022 09:57-0400 SaO2% (BldA) [Mass fraction] 97 % Henna Saenz MD Work Phone: [facility] 04-06-2021 07:11-0400 Body temperature 98.96 [degF] RICKY CELIS MD [facility] 04-06-2021 07:11-0400 Diastolic blood pressure 80 mm[Hg] RICKY CELIS MD [facility] 04-06-2021 07:11-0400 Heart rate 76 /min RICKY CELIS MD [facility] 04-06-2021 07:11-0400 Mean blood pressure 95 mm[Hg] RICKY CELIS MD [facility] 04-06-2021 07:11-0400 Reason For Taking VItal Signs RICKY CELIS MD [facility] 04-06-2021 07:11-0400 Respiratory rate 18 /min RICKY CELIS MD [facility] 04-06-2021 07:11-0400 Systolic blood pressure 124 mm[Hg] RICKY CELIS MD [facility] 04-06-2021 04:00-0400 Heart rate 69 /min RICKY CELIS MD [facility] 04-06-2021 04:00-0400 Reason For Taking VItal Signs RICKY CELIS MD [facility] 04-05-2021 22:44-0400 Body temperature 98.24 [degF] RICKY CELIS MD [facility] 04-05-2021 22:44-0400 Diastolic blood pressure 88 mm[Hg] RICKY CELIS MD [facility] 04-05-2021 22:44-0400 Heart rate 97 /min RICKY CELIS MD [facility] 04-05-2021 22:44-0400 Mean blood pressure 103 mm[Hg] RICKY CELIS MD [facility] 04-05-2021 22:44-0400 Reason For Taking VItal Signs RICKY CELIS MD [facility] 04-05-2021 22:44-0400 Respiratory rate 18 /min RICKY CELIS MD [facility] 04-05-2021 22:44-0400 Systolic blood pressure 132 mm[Hg] RICKY CELIS MD [address] [place] [address] 04-05-2021 20:10-0400 Body temperature 98.42 [degF] RICKY CELIS MD [facility] 04-05-2021 20:10-0400 Diastolic blood pressure 98 mm[Hg] RICKY CELIS MD [facility] 04-05-2021 20:10-0400 Mean blood pressure 116 mm[Hg] RICKY CELIS MD [facility] 04-05-2021 20:10-0400 Respiratory rate 16 /min RICKY CELIS MD [facility] 04-05-2021 20:10-0400 Systolic blood pressure 152 mm[Hg] RICKY CELIS MD [facility] 04-05-2021 06:51-0400 Body height 188 cm RICKY CELIS MD [address] [place] [address] 04-05-2021 06:51-0400 Body weight 123.5 kg RICKY CELIS MD [facility] 04-05-2021 06:51-0400 Body weight 34.94 kg/m2 RICKY CELIS MD [facility] 04-05-2021 05:06-0400 Body weight 123.5 kg RICKY CELIS MD [facility] 04-05-2021 05:06-0400 Heart rate 112 /min RICKY CELIS MD [facility] Encounters Encounter Date Encounter Type Care Provider Facility Start: 11-11-2022 Refdougie kelly MD Work Phone: [facility] [place] Procedures Date Procedure Procedure Detail Performing Clinician [...] VISIT ANNUAL PCP TEAM CHRONIC DISEASE VISIT [facility] Start: 02-13-2023 Influenza vaccination INFLUENZA (Season Ended) [facility] Start: 06-15-2022 DEPRESSION ASSESSMENT DEPRESSION ASSESSMENT [facility] Start: 06-03-2022 End: 06-19-2023 Hepatobil syst imag inc gb w/pharma intervenj NM HEPATOBILIARY W EF AND/OR RX Radiology Routine Elevated bilirubin Right upper quadrant pain Expected: 06/03/2022, Expires: 06/19/2023 [facility] Work Phone: Payers Date Payer Category Payer Private Health Insurance HUMANA HUMANA MEDICAID [facility] [id number] 2022-Present [address] [address] [place] [address] Medicaid [id number] 2021 Medicaid MEDICAID [facility] MEDICAID [id number] 2021-Present [phone] [address] [place] [address] Medicaid [id number] 2021 Medicaid [id number] Social History Date Type Detail Facility Start: 04-05-2021 End: 06-15-1999 Smoker (finding) [facility] Start: 1980 Sex Assigned At Male A [facility] Tobacco smoking stat [facility] Tobacco smoking consumption unknown [facility] Start: 1980 Sex Assigned At Not on file [facility] Start: 04-01-2022 [facility] Start: 04-01-2022 End: 10-14-2022 Tobacco use and exposure User of smokeless tobacco [facility] History of tobacco use Chews Tobacco [facility] Start: 04-01-2022 End: 10-27-2022 Alcohol intake Ex-drinker (finding) [facility] Start: 04-01-2022 Education 21 [facility] Start: 03-22-2022 End: 05-13-2022 Exposure to SARS-CoV-2 (event) Not sure [facility] Start: 10-14-2022 [facility] End: 06-15-1999 History of tobacco use Cigarette Smoker [facility] Start: 10-14-2022 End: 10-27-2022 Cigarettes smoked current (pack per day) - Reported 0.5 [facility] Start: 10-14-2022 Alcohol Comment has not drank in 2 months due to stomach [facility] Clinical Notes 12-02-2020 to 10-27-2022 Ronny Molina [...] state Arthritis shoulders Coronary artery disease no lead cook sees PCP Dr Letty PRADO Mar 2021 [...] This office note has been created using incrediblue, a speech recognition software program, and may contain errors including punctuation, grammar, spelling, gender, and inappropriate words or phrases that pertain to the system. SIGNATURE: Ronny Molina MD PATIENT NAME: Pratik Ennis DATE: October 26, 2022 TIME: 7:55 PM PAGER/CONTACT #: documented in this encounter [facility] 10-13-2022 Miscellaneous Notes Addended by: RONNY MOLINA on: 10/13/2022 03:05 PM Modules accepted: Orders documented in this encounter [facility] 10-13-2022 History of Present illness Narrative Images [...] This office note has been created using incrediblue, a speech recognition software program, and may contain errors including punctuation, grammar, spelling, gender, and inappropriate words or phrases that pertain to the system. SIGNATURE: Ronny Molina MD PATIENT NAME: Pratik Ennis DATE: 10/13/2022 TIME: 11:01 AM PAGER/CONTACT #: documented in this encounter [facility] 10-12-2022 Instructions Ronny Molina MD - 10/12/2022 [...] If you do not have a responsible truck driver heavy (family member or friend) with you to [...] exam. 2 05/2019 documented in this encounter [facility] 10-07-2022 Note HNO ID: [id number] Author: RT Codi(R) Service: ? Author Type: [...] 1050 PATIENT DISCHARGED TO: Ambulatory patient, left [place] department area. A Diagnostic radioactive procedure has taken place, with no further precautions necessary other than routine body substance precautions. More information regarding radiation safety can be found using this link: [email or web address] SIGNATURE: RT Codi(R) PATIENT NAME: Pratik Ennis DATE: October 07, 2022 TIME: 11:01 AM PAGER/CONTACT #: [facility] 10-07-2022 History of Present illness [...] AM PAGER/CONTACT #: documented in this encounter [facility] 06-03-2022 Miscellaneous Notes APPROVED through 06/02/2023 PENDING, Pantoprazole Sodium 40MG dr maci Davalos: [id number] Cover My Meds documented in this encounter [facility] 06-02-2022 Miscellaneous Notes Patient has been identified [...] Bianca Franco MA documented in this encounter [facility] 05-20-2022 Note HNO ID: [id number] Author: Ronny Molina MD Service: ? Author [...] This office note has been created using incrediblue, a speech recognition software program, and may contain errors including punctuation, grammar, spelling, gender, and inappropriate words or phrases that pertain to the system. SIGNATURE: Ronny Molina MD PATIENT NAME: Pratik Ennis DATE: May 19, 2022 TIME: 11:28 AM PAGER/CONTACT #: [facility] 05-20-2022 Instructions Ronny Molina MD [...] If you do not have a responsible truck driver heavy (family member or friend) with you to [...] preparation [facility] at [facility] 1 05/2019 Bowel Preparation Instructions [...] exam. 2 05/2019 documented in this encounter [facility] 05-20-2022 History of Present illness Narrative Images [...] This office note has been created using incrediblue, a speech recognition software program, and may contain errors including punctuation, grammar, spelling, gender, and inappropriate words or phrases that pertain to the system. SIGNATURE: Ronny Molina MD PATIENT NAME: Pratik Ennis DATE: May 19, 2022 TIME: 11:28 AM PAGER/CONTACT #: documented in this encounter [facility] 05-13-2022 Note HNO ID: [id number] Author: Jie Holt RT(R) Service: Radiology Author [...] May 13, 2022 TIME: 9:48 AM [facility] 05-13-2022 History of Present illness [...] TIME: 9:48 AM documented in this encounter [facility] 04-15-2022 History and physical note Images from [...] any drug use Patient was admitted to [facility] about a year ago for concern for [...] AM PAGER/CONTACT #: documented in this encounter [facility] 04-02-2022 Miscellaneous Notes Patient notified Bianca Franco MA April 02, 2022 2:27 PM ----- Message from Henna Saenz MD sent at 04/02/2022 12:55 PM EDT ----- Please call and notify patient normal amylase, lipase, TSH Stable CBC Bilirubin liver pigment is 1.1 normal is 1.0 - watch Potassium 5.5 from hemolysis - observe No recommendations documented in this encounter [facility] 04-01-2022 Note HNO ID: [id number] Author: Mercedes Coyle LPN Service: ? Author [...] only takes his carvedilol once daily. [facility] 04-01-2022 Note HNO ID: [id number] Author: Henna Saenz MD Service: ? Author [...] Surgery for endoscope Henna Saenz MD [facility] 04-01-2022 History of Present illness [...] Henna Saenz MD documented in this encounter [facility] 04-06-2021 Hospital Discharge instructions Patient Education 04/06/2021 [...] foods are healthy for your heart. Take rbsj-[id number] and prescription medicines only as told by [...] 11/25/2001 Document Revised: 07/08/2018 Document Reviewed: 07/08/2018 [employer] Patient Education 2020 [employer]. Follow Up Care 04/05/2021 04:51:48 With:Prescription Assistance Address:Unknown When: Unknown Comments:Prescription assistance has been arranged for you and is available for non-narcotic medications ordered by your doctor. To access, bring your prescriptions to the [facility] located [facility] on the main floor of the [facility] .Pharmacy hours are: Thursday-Thursday 6a-630p, Thursday 8a-2p, Thursday-closed. With:Cardiac Rehab Address: [facility] TH[facility] FLOOR- [address] [address]- When: Unknown Comments:The Cardiac Rehab department will call you in 1-2 weeks to schedule you for phase 2. We left you a brochure with information about cardiac rehab. If you have any questions please call [phone]. With:HERMELINDO PRITCHARD Address:Unknown When:1-2 days [facility] 1. STEMI - ST elevation myoc [...] of this technology. Dr. Blanca Coker Interventional Anesthesia Assistant, PGY 7 Pager: [phone] Please call with any questions or concerns Attending for this patient encounter is Dr. Celis [facility] 06-20-2021 History of Present illness Narrative* [...] and treatment. Patient chose to go to [facility] in [place] and patient went to the ER in private car. Cali Pritchard MD [id number] [facility] File#: [id number] END OF DOCUMENT / CHANGE LOG FOLLOWS Last Edited By Elec. Signed By Cali Pritchard MD #JOSEPH Cali Pritchard MD #JOSEPH on 12/08/2020 09:35 ET on 12/08/2020 09:35 ET Revision Number - 2 ^^^ Verified/Reviewed by 12/08/2035 JOSEPH [facility] PATIENT NAME: PRATIK ENNIS [address] [place] MEDICAL REC #: [id number] [place] [address] [facility] RE[facility] Epigastric pain- Primary Abdominal pain, epigastric documented in this encounter [facility] note* Diagnosis Epigastric pain Abdominal pain, epigastric documented in this encounter [facility] note* Diagnosis Epigastric pain Abdominal pain, epigastric documented in this encounter [facility] note* Diagnosis Epigastric pain Abdominal pain, epigastric documented in this encounter [facility] note* Diagnosis Right upper quadrant pain- Primary Abdominal pain, right upper quadrant Urinary tract infection without hematuria, site unspecified Elevated bilirubin Jaundice, unspecified, not of documented in this encounter [facility] note* Diagnosis Elevated bilirubin Jaundice, unspecified, not of Right upper quadrant pain Abdominal pain, right upper quadrant documented in this encounter [facility] note* Diagnosis Epigastric pain- Primary Abdominal pain, epigastric Right upper quadrant pain Abdominal pain, right upper quadrant Right upper quadrant pain Abdominal pain, right upper quadrant documented in this encounter [facility] note* Diagnosis Epigastric pain Abdominal pain, epigastric Right upper quadrant pain Abdominal pain, right upper quadrant Right upper quadrant pain Abdominal pain, right upper quadrant documented in this encounter [facility] note* Diagnosis S/P cholecystectomy- Primary Other acquired absence of organ documented in this encounter [facility] course Narrative No data available for this section [facility] Reason for referral (narrative)* Diagnostic Procedure Only (Routine) - Closed Specialty Diagnoses / Procedures Referred By Jamal elliott Referred To Contact US IMAGING Diagnoses Epigastric pain Procedures US ABD RT UPPER QUADRANT US ABDOMINAL REAL TIME W/IMAGE LIMITED Ronny Molina MD [address] [place] [address] Us Imaging Referral ID Status Reason Start Date Expiration Date V isits Requested Visits Authorized [id number] Closed Auto-Generate d Referral 05/15/2022 05/15/[address] [facility] for referral (narrative)* Diagnostic Procedure Only (Routine) - Authorized Specialty Diagnoses / Procedures Referred By Contac t Referred To Contact MOLECULAR & FUNCTIONAL IMAGING Diagnoses Elevated bilirubin Right upper quadrant pain Procedures NM HEPATOBILIARY W EF AND/OR RX HEPATOBIL SYST IMAG INC GB W/PHARMA Ronny Red MD [address] [place] [address] Molecular & Functional Imaging [address] [place] [address] Referral ID Status Reason Start Date Expiration Date Visits Requested Visits Authorized [id number] Authorized Auto-Generat ed Referral 06/19/2023 1 1 [facility] for referral (narrative)* Diagnostic Procedure Only (Routine) - Closed Specialty Diagnoses / Procedures Referred By Contac t Referred To Contact MOLECULAR & FUNCTIONAL IMAGING Diagnoses Elevated bilirubin Right upper quadrant pain Procedures NM HEPATOBILIARY W EF AND/OR RX HEPATOBIL SYST IMAG INC GB W/PHARMA Ronny Red MD [address] [place] [address] Molecular & Functional Imaging [address] [place] [address] Referral ID Status Reason Start Date Expiration Date V isits Requested Visits Authorized [id number] Closed Auto-Generate d Referral 06/03/2022 06/19/2023 1 1 [facility] for referral (narrative)* Diagnostic Procedure Only (Urgent) - Closed Specialty Diagnoses / Procedures Referred By Contac t Referred To Contact US IMAGING Diagnoses Epigastric pain Right upper quadrant pain Procedures US ABD RIGHT UPPER QUADRANT US ABDOMINAL REAL TIME W/IMAGE LIMITED Ronny Molina MD [address] [place] [address] Us Imaging Referral ID Status Reason Start Date Expiration Date V isits Requested Visits Authorized [id number] Closed Auto-Generate d Referral 10/13/2022 11/12/2023 1 1 * MRI/CT (Urgent) - Closed Specialty Diagnoses / Procedures Referred By Contac t Referred To Contact CT IMAGING Diagnoses Epigastric pain Right upper quadrant pain Procedures CT ABD/PEL W IVCON CT ABD & PELVIS W/CONTRAST Ronny Molina MD [address] [place] [address] Ct Imaging Referral ID Status Reason Start Date Expiration Date V isits Requested Visits Authorized [id number] Closed Auto-Generate d Referral 10/13/2022 11/12/2023 1 1 [facility] for referral (narrative)* Diagnostic Procedure Only (Urgent) - Closed Specialty Diagnoses / Procedures Referred By Jamal t Referred To Contact US IMAGING Diagnoses Epigastric pain Right upper quadrant pain Procedures US ABD RIGHT UPPER QUADRANT US ABDOMINAL REAL TIME W/IMAGE LIMITED Ronny Molina MD [address] [place] [address] Us Imaging Referral ID Status Reason Start Date Expiration Date V isits Requested Visits Authorized [id number] Closed Auto-Generate d Referral 10/13/2022 11/12/2023 1 1 [facility] for visit Narrative* Diagnostic Procedure Only (Routine) - Closed Specialty Diagnoses / Procedures Referred By Jamal t Referred To Contact US IMAGING Diagnoses Epigastric pain Procedures US ABD RT UPPER QUADRANT US ABDOMINAL REAL TIME W/IMAGE LIMITED Ronny Molina MD [address] [place] [address] Us Imaging Referral ID Status Reason Start Date Expiration Date V isits Requested Visits Authorized [id number] Closed Auto-Generate d Referral 05/15/2022 05/15/2023 1 1 [facility] for visit Narrative* Diagnostic Procedure Only (Routine) - Closed Specialty Diagnoses / Procedures Referred By Contac t Referred To Contact MOLECULAR & FUNCTIONAL IMAGING Diagnoses Elevated bilirubin Right upper quadrant pain Procedures NM HEPATOBILIARY W EF AND/OR RX HEPATOBIL SYST IMAG INC GB W/PHARMA INTERVENJ Ronny Molina MD [address] [place] [address] Molecular & Functional Imaging [address] [place] [address] Referral ID Status Reason Start Date Expiration Date V isits Requested Visits Authorized [id number] Closed Auto-Generate d Referral 06/03/2022 06/19/2023 1 [facility] Diagnostic Procedure Only (Urgent) - Closed Specialty Diagnoses / Procedures Referred By Jamal t Referred To Contact US IMAGING Diagnoses Epigastric pain Right upper quadrant pain Procedures US ABD RIGHT UPPER QUADRANT US ABDOMINAL REAL TIME W/IMAGE LIMITED Ronny Molina MD [address] [place] [address] Us Imaging Referral ID Status Reason Start Date Expiration Date V isits Requested Visits Authorized [id number] Closed Auto-Generate d Referral 10/13/2022 11/12/2023 1 1 [facility] Summary Purpose Family History No Family History [...] W/CONTRAST Ronny Molina MD [address] [place] [address] Ct Imaging Referral ID Status Reason Start Date Expiration Date V isits Requested Visits Authorized [id number] Closed Auto-Generate d Referral 10/13/2022 11/12/2023 1 1 Specialty Diagnoses / Procedures Referred By Contsaravanan t Referred To Contact Henna Saenz MD [address] [place] [address] Referral ID Status Reason Start Date Expiration Date V isits Requested Visits Authorized [id number] Pending Review 1 1 Specialty Diagnoses / Procedures Referred By Contac t Referred To Contact CT IMAGING Diagnoses Epigastric pain Procedures CT ABD/PEL W IVCON CT ABD & PELVIS W/CONTRAST Ronny Molina MD [address] [place] [address] Ct Imaging Referral ID Status Reason Start Date Expiration Date Visits Requested Visits Authorized [id number] Authorized Auto-Generat ed Referral 05/15/2022 05/15/2023 1 1 Specialty Diagnoses / Procedures Referred By Contac t Referred To Contact US IMAGING Diagnoses Epigastric pain Procedures US ABD RT UPPER QUADRANT US ABDOMINAL REAL TIME W/IMAGE LIMITED Ronny Molina MD [address] [place] [address] Us Imaging Referral ID Status Reason Start Date Expiration Date Visits Requested Visits Authorized [id number] Authorized Auto-Generat ed Referral 05/15/2022 05/15/2023 1 1 Specialty Diagnoses / Procedures Referred By Contac t Referred To Contact General Surgery Diagnoses Epigastric pain Procedures CONSULT TO GENERAL SURGERY OFFICE/OUTPATIENT [facility] 60-74 MINUTES Henna Saenz MD [address] [place] [address] Referral ID Status Reason Start Date Expiration Date Visits Requested Visits Authorized [id number] Authorized PCP Requested Referral 2 04/01/2023 1 1 Additional Source Comments (unrecognized sect ion and content) No Status Records FoundNo Status Records FoundNo Status Records Found INFORMATION SOURCE (unrecogn ized section and content) DATE CREATED AUTHOR AUTHOR'S ORGANIZ ATION 11/30/2021 [facility] clari Marlin DATE CREATED AUTHOR AUTHOR'S ORGANIZ ATION 10/08/2022 [facility] ntjim Source Comments (unrecognize d section and content) In the event this informatio n is protected by the Federal Confidentiality of Alcohol and Drug Abuse Patient Records regulations: The Federal rules restrict any use of the information to criminally investigate or prosecute any alcohol or drug abuse patient.[facility] [place] the event this information is protected by the Federal Confidentiality of Alcohol and Drug Abuse Patient Records regulations: The Federal rules restrict any use of the information to criminally investigate or prosecute any alcohol or drug abuse patient.[facility] [place] the event this information is protected by the Federal Confidentiality of Alcohol and Drug Abuse Patient Records regulations: The Federal rules restrict any use of the information to criminally investigate or prosecute any alcohol or drug abuse patient.[facility] [place] the event this information is protected by the Federal Confidentiality of Alcohol and Drug Abuse Patient Records regulations: The Federal rules restrict any use of the information to criminally investigate or prosecute any alcohol or drug abuse patient.[facility] [place] the event this information is protected by the Federal Confidentiality of Alcohol and Drug Abuse Patient Records regulations: The Federal rules restrict any use of the information to criminally investigate or prosecute any alcohol or drug abuse patient.[facility] [place] the event this information is protected by the Federal Confidentiality of Alcohol and Drug Abuse Patient Records regulations: The Federal rules restrict any use of the information to criminally investigate or prosecute any alcohol or drug abuse patient.[facility] [place] the event this information is protected by the Federal Confidentiality of Alcohol and Drug Abuse Patient Records regulations: The Federal rules restrict any use of the information to criminally investigate or prosecute any alcohol or drug abuse patient.[facility] [place] the event this information is protected by the Federal Confidentiality of Alcohol and Drug Abuse Patient Records regulations: The Federal rules restrict any use of the information to criminally investigate or prosecute any alcohol or drug abuse patient.[facility] [place] the event this information is protected by the Federal Confidentiality of Alcohol and Drug Abuse Patient Records regulations: The Federal rules restrict any use of the information to criminally investigate or prosecute any alcohol or drug abuse patient.[facility] [place] the event this information is protected by the Federal Confidentiality of Alcohol and Drug Abuse Patient Records regulations: The Federal rules restrict any use of the information to criminally investigate or prosecute any alcohol or drug abuse patient.[facility] [place] the event this information is protected by the Federal Confidentiality of Alcohol and Drug Abuse Patient Records regulations: The Federal rules restrict any use of the information to criminally investigate or prosecute any alcohol or drug abuse patient.[facility] [place] the event this information is protected by the Federal Confidentiality of Alcohol and Drug Abuse Patient Records regulations: The Federal rules restrict any use of the information to criminally investigate or prosecute any alcohol or drug abuse patient.[facility] [place] the event this information is protected by the Federal Confidentiality of Alcohol and Drug Abuse Patient Records regulations: The Federal rules restrict any use of the information to criminally investigate or prosecute any alcohol or drug abuse patient.[facility] [place] the event this information is protected by the Federal Confidentiality of Alcohol and Drug Abuse Patient Records regulations: The Federal rules restrict any use of the information to criminally investigate or prosecute any alcohol or drug abuse patient.[facility] [place] the event this information is protected by the Federal Confidentiality of Alcohol and Drug Abuse Patient Records regulations: The Federal rules restrict any use of the information to criminally investigate or prosecute any alcohol or drug abuse patient.[facility] [place] the event this information is protected by the Federal Confidentiality of Alcohol and Drug Abuse Patient Records regulations: The Federal rules restrict any use of the information to criminally investigate or prosecute any alcohol or drug abuse patient.[facility] [place] the event this information is protected by the Federal Confidentiality of Alcohol and Drug Abuse Patient Records regulations: The Federal rules restrict any use of the information to criminally investigate or prosecute any alcohol or drug abuse patient.[facility] [place] the event this information is protected by the Federal Confidentiality of Alcohol and Drug Abuse Patient Records regulations: The Federal rules restrict any use of the information to criminally investigate or prosecute any alcohol or drug abuse patient.[facility] [place] the event this information is protected by the Federal Confidentiality of Alcohol and Drug Abuse Patient Records regulations: The Federal rules restrict any use of the information to criminally investigate or prosecute any alcohol or drug abuse patient.[facility] [place]In the event this information is protected by the Federal Confidentiality of Alcohol and Drug Abuse Patient Records regulations: The Federal rules restrict any use of the information to criminally investigate or prosecute any alcohol or drug abuse patient.[facility] [place]In the event this information is protected by the Federal Confidentiality of Alcohol and Drug Abuse Patient Records regulations: The Federal rules restrict any use of the information to criminally investigate or prosecute any alcohol or drug abuse patient.[facility] Care Teams (unrecognized sec tion and content) Chronometer Tester Relationship Specialty Start Date End Date Henna Saenz MD [address] [place] [address] PCP - General Family Medicine 11/28/21 Chronometer Tester Relationship Specialty Start Date End Date Henna Saenz MD [address] [place] [address] PCP - General Family Medicine 11/28/21 Chronometer Tester Relationship Specialty Start Date End Date Henna Saenz MD PCP - General Family Medicine 11/28/21 Chronometer Tester Relationship Specialty Start Date End Date Henna Saenz MD PCP - General Family Medicine 11/28/21 Chronometer Tester Relationship Specialty Start Date End Date Henna Saenz MD PCP - General Family Medicine 11/28/21 Chronometer Tester Relationship Specialty Start Date End Date Henna Saenz MD PCP - General Family Medicine 11/28/21 Chronometer Tester Relationship Specialty Start Date End Date Henna Saenz MD PCP - General Family Medicine 11/28/21 Chronometer Tester Relationship Specialty Start Date End Date Henna Saenz MD PCP - General Family Medicine 11/28/21 Chronometer Tester Relationship Specialty Start Date End Date Henna Saenz MD PCP - General Family Medicine 11/28/21 Chronometer Tester Relationship Specialty Start Date End Date Henna Saenz MD PCP - General Family Medicine 11/28/21 Chronometer Tester Relationship Specialty Start Date End Date Henna Saenz MD PCP - General Family Medicine 11/28/21 Chronometer Tester Relationship Specialty Start Date End Date Henna Saenz MD PCP - General Family Medicine 11/28/21 Chronometer Tester Relationship Specialty Start Date End Date Henna Saenz MD PCP - General Family Medicine 11/28/21 Chronometer Tester Relationship Specialty Start Date End Date Henna Saenz MD PCP - General Family Medicine 11/28/21 Reason for Visit (unrecogniz ed section and content) Reason Comments Results Reason Comments Consult Stomach pain Specialty Diagnoses / Procedures Referred By Jamal elliott Referred To Contact General Surgery Diagnoses Epigastric pain Procedures CONSULT TO GENERAL SURGERY OFFICE/OUTPATIENT [facility] 60-74 MINUTES Henna Saenz MD [address] [place] [address] Referral ID Status Reason Start Date Expiration Date V isits Requested Visits Authorized [id number] Closed PCP Requested Referral 04/01/2022 04/01/2023 1 1 Specialty Diagnoses / Procedures Referred By Contac t Referred To Contact CT IMAGING Diagnoses Epigastric pain Procedures CT ABD/PEL W IVCON CT ABD & PELVIS W/CONTRAST Ronny Molina MD [address] [place] [address] Ct Imaging Referral ID Status Reason Start Date Expiration Date V isits Requested Visits Authorized [id number] Closed Auto-Generate d Referral 05/15/2022 05/15/2023 1 [...] MD [address] [place] [address] Ct Imaging Referral ID Status Reason Start Date Expiration Date V isits Requested Visits Authorized [id number] Closed Auto-Generate d Referral 10/13/2022 11/12/2023 1 [...] BE BASED ON THE PRIMARY CLINICAL RECORDS. [employer] provides no warranty or guarantee of the accuracy or completeness of information in this document.
== END 2023-06-10 18:36 | disposition home or self-care (01) | DRG 192 ==
LOC: ED 19:49 → PCU 20:14
PROVIDERS: Nurse Practitioner; Admitting Provider Internal Medicine; Emergency Provider Emergency Medicine; Visit Provider Family Medicine
DX: R07.9 Chest pain, unspecified (principal); F12.90 Cannabis use, unspecified, uncomplicated; I10 Essential (primary) hypertension; F41.9 Anxiety disorder, unspecified; K21.9 Gastro-esophageal reflux disease without esophagitis; Z79.82 Long term (current) use of aspirin; R22.2 Localized swelling, mass and lump, trunk
CPT/HCPCS: 36415; 71046; 80048; 80053; 83735; 84443; 84484; 85025; 85610; 85652; 85730; 93005; 93306; 93454; 99152; 99153; 99285; J7030; J7040; Q9957; Q9967; A4216; C1769; C1894; C8929